=== PATIENT | male | born 1965 | race Caucasian/White ===

== ENCOUNTER 2017-04-17 13:05 | Emergency (ER) | payer SELFPAY ==
[2017-04-17 13:06] VITALS: BP 211/136; PULSE 88; RESP 20; TEMP 37.3; O2SAT 98; BMI 35.2
--- NOTE | 2017-04-17 14:40 | PC.NURSE ---
PT B/P IS 211/136 , PT STATES THAT IS NORMAL FOR HIM HE HAS NOT BEEN TAKING HIS MEDS. PT TAKES LISINOPRIL/HCTZ
--- NOTE | 2017-04-17 15:13 | XR_ITS ---
XR ankle LT 2V, XR foot LT 2V Ordering Physician: Mirta Danielle MD Patient Age: 51 years: Male HISTORY: ITS.REASON: REDNESS AND SWELLING NO INJURY left ankle TECHNIQUE: Left ankle 2 views Left foot 2 views COMPARISON :February 2016 right ankle 3 views = Left ANKLE 2 VIEWS No acute fracture nor dislocation. On this AP and lateral view The ankle mortise well-maintained. Dome of talus intact. Mild hypertrophic ridging lipping at the anterior margin of the distal talus at the ankle joint. Question. Minor soft tissue swelling laterally overlying the lateral malleolu is similar to previous right ankle study s. Left FOOT 2 VIEWS AP and lateral view of the left foot demonstrates mild diffuse soft tissue swelling at the foot most evident dorsal. No radiopaque foreign body evident. The bones well mineralized with no fracture nor dislocation. Mild degenerative changes first MTP joint noted. A generous plantar calcaneal spur measures 11 mm length. Scant spurring at insertion of Achilles tendon. . No evidence of periosteal reaction or nor osteomyelitis radiographically IMPRESSIONs: LEFT FOOT: Osseous structures left foot intact. No acute osseous findings. Plantar calcaneal spur. Early degenerative changes first MTP joint. Suggestion diffuse Soft tissue swelling left foot. No radiopaque foreign body LEFT ANKLE. Joint well-maintained. No acute findings. . Scant degenerative changes
[2017-04-17 15:29] LABS: Uric Acid 7.5 mg/dL (2.6-7.2)
[2017-04-17 15:45] LABS: Basophils % 0.4 % (0.1-2.0); Eosinophils # 0.1 K/mm3 (0.0-0.4); Hematocrit 43.2 % (42.0-52.0); Hemoglobin 15.1 g/dL (14.1-18.0); Lymphocytes # 1.9 K/mm3 (0.7-4.5); Lymphocytes % 18.1 K/mm3 (10-50); Mean Corpuscular Hemoglobin 29.4 pg (27.0-31.2); Mean Corpuscular Volume 83.9 fl (80-94); Mean Platelet Volume 8.2 fl (7.4-10.4); Monocytes # 0.9 K/mm3 (0.1-1.0); Monocytes % 8.1 % (1.7-9.3); Neutrophils # 7.7 K/mm3 (1.8-7.8); Neutrophils % 72.5 % (37.0-80.0); Platelet Count 316 K/mm3 (142-424); Red Blood Count 5.15 M/mm3 (4.60-6.20); Red Cell Distribution Width 12.5 % (11.5-17.5); White Blood Count 10.6 K/mm3 (4.8-10.8)
[2017-04-17 15:54] LABS: Alanine Aminotransferase 17 U/L (12-78); Albumin Level 3.5 gm/dL (3.4-5.0); Albumin/Globulin Ratio 0.8 (1.1-1.8); Alkaline Phosphatase 83 U/L (46-116); Anion Gap 11.3 mEq/L (5-15); Aspartate Amino Transferase 22 U/L (15-37); Bilirubin,Total 1.1 mg/dL (0.2-1.0); Blood Urea Nitrogen 18 mg/dL (7-18); C-Reactive Protein 10.8 mg/L (0.0-0.9); Calcium 9.5 mg/dL (8.5-10.1); Carbon Dioxide 30 mmol/L (21.0-32.0); Chloride 96 mmol/L (98-107); Creatinine Clearance Estimated 95 mL/min (0-300); Estimated Glomerular Filt Rate 58 ml/min (>60); GFR (African American) 70 ML/MIN (>60); Globulin 4.5 gm/dl (1.3-3.2); Glucose 138 mg/dL (74-106); Potassium 3.3 mmoL/L (3.5-5.1); Sodium 134 mmol/L (136-145)
--- NOTE | 2017-04-17 18:30 | HMH.EDGENADL ---
ED Disposition Clinical Impression: Gout attack Qualifiers: Encounter type: initial encounter Laterality: left Disposition: Home, Self-Care Condition on Discharge: Good Instructions: DI for Gout Additional Instructions: colchicine, allopurinol, Naproxen, Medrol, see Dr. 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 The time I documented below is in addition to time spent performing reported procedures but includes the following listed in this critical care notation. Medical Decision Making - Medical Records Medical records reviewed: Yes: I reviewed the patient's medical records. Vital Signs: 04/17/17 13:06 Temperature 99.1 F Temperature Source Oral Pulse Rate [Right Radial] 88 Respiratory Rate 20 Blood Pressure [Right Arm] 211/136 Blood Pressure Mean [Right Arm] 161 Blood Pressure Source [Right Arm] Automatic Cuff Blood Pressure Position [Right Arm] Sitting 02 Sat by Pulse Oximetry 98 Oxygen Delivery Method Room Air - Lab Data Lab results reviewed: Yes: I reviewed the patient's lab results. Lab Results 04/17/17 14:51: Uric Acid 7.5 H 04/17/17 14:57: WBC 10.6, RBC 5.15, Hgb 15.1, Hct 43.2, MCV 83.9, MCH 29.4, MCHC 35.0, RDW 12.5, Plt Count 316, MPV 8.2, Neut % (Auto) 72.5, Lymph % (Auto) 18.1, [place] % (Auto) 8.1, Eos % (Auto) 1.0, Baso % (Auto) 0.4, Neut # (Auto) 7.7, Lymph # (Auto) 1.9, [place] # (Auto) 0.9, Eos # (Auto) 0.1, Baso # (Auto) 0.0 01/20/18 14:57: Sodium 134 L, Potassium 3.3 L, Chloride 96 L, Carbon Dioxide 30, Anion Gap 11.3, BUN 18, Creatinine 1.30, Estimated Creat Clear 95, Estimated GFR 58 L, Est GFR ( Amer) 70, Glucose 138 H, Calcium 9.5, Total Bilirubin 1.1 H, AST 22, ALT 17, Alkaline Phosphatase 83, C-Reactive Protein 10.8 H, Total Protein 8.0, Albumin 3.5, Globulin 4.5 H, Albumin/Globulin Ratio 0.8 L Result diagrams: 04/17/17 14:57 04/17/17 14:57 Orders (Tests/Meds): ORDERS Category Date Time Status Blood Culture Stat Micro 04/17/17 15:33 Received - Radiology Data #1 Image(s): Ankle, Foot/Toes Image Reviewed: Yes I reviewed the patient's radiology results, Yes I have reviewed radiologist's interpretation Preliminary Findings: Normal/NAD No osteomyelitis per radiology review - [place] Inquiry Pt receiving controlled substance: No General Adult HPI - General Chief complaint: PAIN Stated complaint: left foot gout Mode of Arrival: Wheelchair Limitations: Physical Limitations Description of Symptoms (Recalled from ER Triage Doc. by RN): L FOOT AND ANKLE - History of Present Illness HPI narrative: Swelling to left ankle times several days. History of gout. No fevers or vomiting. Patient has been on allopurinol in the past, successfully. He says probenecid indomethacin have not worked. Consistency: constant Relieving factors: none Exacerbating factors: none Associated symptoms: denies other symptoms - Related Data Previous Rx's Medication Instructions Recorded Allopurinol [Allopurinol 100mg 200 mg PO BID #20 tab 04/17/17 tablet] Colchicine [Mitigare] 0.6 mg PO BID #20 cap 04/17/17 Naproxen [EC-Naprosyn] 500 mg PO BID PRN #20 tablet. 04/17/17 methylPREDNISolone [Medrol] 4 mg PO DAILY #1 tab.ds.pk 04/17/17 Allergies Allergy/AdvReac Type Severity Reaction Status Date / Time No Known Allergies Allergy Verified 04/17/17 14:39 [facility] History Medical History: Denies:: Cancer, Diabetes Mellitus
--- NOTE | 2017-04-17 18:35 | ED_ITS ---
ED Disposition Clinical Impression: Gout attack Qualifiers: Encounter type: initial encounter Laterality: left Disposition: Home, Self-Care Condition on Discharge: Good Instructions: DI for Gout Additional Instructions: colchicine, allopurinol, Naproxen, Medrol, see Dr. 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 The time I documented below is in addition to time spent performing reported procedures but includes the following listed in this critical care notation. Medical Decision Making - Medical Records Medical records reviewed: Yes: I reviewed the patient's medical records. Vital Signs: 04/17/17 13:06 Temperature 99.1 F Temperature Source Oral Pulse Rate [Right Radial] 88 Respiratory Rate 20 Blood Pressure [Right Arm] 211/136 Blood Pressure Mean [Right Arm] 161 Blood Pressure Source [Right Arm] Automatic Cuff Blood Pressure Position [Right Arm] Sitting 02 Sat by Pulse Oximetry 98 Oxygen Delivery Method Room Air - Lab Data Lab results reviewed: Yes: I reviewed the patient's lab results. Lab Results 04/17/17 14:51: Uric Acid 7.5 H 04/17/17 14:57: WBC 10.6, RBC 5.15, Hgb 15.1, Hct 43.2, MCV 83.9, MCH 29.4, MCHC 35.0, RDW 12.5, Plt Count 316, MPV 8.2, Neut % (Auto) 72.5, Lymph % (Auto) 18.1, [place] % (Auto) 8.1, Eos % (Auto) 1.0, Baso % (Auto) 0.4, Neut # (Auto) 7.7 , Lymph # (Auto) 1.9, [place] # (Auto) 0.9, Eos # (Auto) 0.1, Baso # (Auto) 0.0 01/20/18 14:57: Sodium 134 L, Potassium 3.3 L, Chloride 96 L, Carbon Dioxide 30 , Anion Gap 11.3, BUN 18, Creatinine 1.30, Estimated Creat Clear 95, Estimated GFR 58 L, Est GFR ( Amer) 70, Glucose 138 H, Calcium 9.5, Total Bilirubin 1.1 H, AST 22, ALT 17, Alkaline Phosphatase 83, C-Reactive Protein 10.8 H, Total Protein 8.0, Albumin 3.5, Globulin 4.5 H, Albumin/Globulin Ratio 0.8 L Result diagrams: 04/17/17 14:57 04/17/17 14:57 Orders (Tests/Meds): ORDERS Category Date Time Status Blood Culture Stat Micro 04/17/17 15:33 Received - Radiology Data #1 Image(s): Ankle, Foot/Toes Image Reviewed: Yes I reviewed the patient's radiology results, Yes I have reviewed radiologist's interpretation Preliminary Findings: Normal/NAD No osteomyelitis per radiology review - [place] Inquiry Pt receiving controlled substance: No General Adult HPI - General Chief complaint: PAIN Stated complaint: left foot gout Mode of Arrival: Wheelchair Limitations: Physical Limitations Description of Symptoms (Recalled from ER Triage Doc. by RN): L FOOT AND ANKLE - History of Present Illness HPI narrative: Swelling to left ankle times several days. History of gout. No fevers or vomiting. Patient has been on allopurinol in the past, successfully. He says probenecid indomethacin have not worked. Consistency: constant Relieving factors: none Exacerbating factors: none Assoc
[2017-04-17 18:57] VITALS: BP 220/141; PULSE 92; RESP 20; O2SAT 98
== END 2017-04-17 18:57 | disposition home or self-care (01) ==
PROVIDERS: Emergency Provider Emergency Medicine; Family Provider Internal Medicine
DX: M10.9 Gout, unspecified (principal); F17.210 Nicotine dependence, cigarettes, uncomplicated
CPT/HCPCS: 36415; 73600; 73620; 80053; 84550; 85025; 86140; 87040; 99282

== ENCOUNTER 2017-05-14 08:34 | Emergency (ER) | payer SELFPAY ==
[2017-05-14 08:39] VITALS: BP 234/130; PULSE 78; RESP 20; TEMP 37.2; O2SAT 100; BMI 72.5
--- NOTE | 2017-05-14 08:52 | HMH.EDEXTP ---
ED Disposition Clinical Impression: Tenosynovitis, Sprain and strain of wrist, Accelerated hypertension, Rheumatoid arthritis flare Disposition: Xfer Critical Access Hosp Condition on Discharge: Fair Instructions: Sprain, DI for Wrist Strain Additional Instructions: TAke medicine as directed and followup with Dr. Steele or Dr. Alaniz in the next coupleof days or return to the ED as needed. Use sling and splint and apply ice pack 20minutes out of each hour while awake Pt requests transfer to [facility] to Dr. Camara...we called him...and he referred us to Dr. Portillo, the Hospitalist at [facility] and Dr. Portillo has accepted pt in transfer. He has received Clonidine 0.1 mg X 2, lisinopril 40 mg po and Nitroglycerin drip titrated now to20 mcg / min and BP still very high Prescriptions: Diclofenac Potassium [Diclofenac 50mg Tab] 50 mg PO BID 30 Days #60 tab Lisinopril/Hydrochlorothiazide [Lisinopril-Hctz 20-25 mg Tab] 1 tab PO DAILY 30 Days #30 tab predniSONE [Deltasone 5mg tablet] 5 mg PO DAILY 12 Days #39 tab Referrals: Simon Stanton [Primary Care Provider] - Forms: Transfer Record - ED Time of Disposition: 12:06 - Critical Care Critical Care Time: No Attestation: On , the high probability of a clinically significant, sudden or life threatening deterioration of the following system(s) required my full and direct attention, intervention and personal management. The time I documented below is in addition to time spent performing reported procedures but includes the following listed in this critical care notation. Medical Decision Making - Medical Records Medical records reviewed: Yes: I reviewed the patient's medical records. Vital Signs: 05/14/17 08:39 05/14/17 10:05 Temperature 98.9 F Temperature Source Tympanic Pulse Rate [Left Radial] 78 98 H Respiratory Rate 20 20 Blood Pressure [Left Arm] 234/130 227/116 Blood Pressure Mean [Left Arm] 164 153 Blood Pressure Source [Left Arm] Manual Cuff/ Auscultation Manual Cuff/ Auscultation Blood Pressure Position [Left Arm] Sitting 02 Sat by Pulse Oximetry 100 100 Oxygen Delivery Method Room Air Room Air - Lab Data Lab results reviewed: Yes: I reviewed the patient's lab results. Lab Results 05/14/17 09:05: WBC 10.8, RBC 5.25, Hgb 15.2, Hct 44.4, MCV 84.6, MCH 28.9, MCHC 34.1, RDW 12.8, Plt Count 320, MPV 7.7, Neut % (Auto) 72.0, Lymph % (Auto) 20.6, [place] % (Auto) 5.3, Eos % (Auto) 1.6, Baso % (Auto) 0.5, Neut # (Auto) 7.7, Lymph # (Auto) 2.2, [place] # (Auto) 0.6, Eos # (Auto) 0.2, Baso # (Auto) 0.1 05/14/17 09:05: Sodium 138, Potassium 3.3 L, Chloride 101, Carbon Dioxide 29, Anion Gap 11.3, BUN 13, Creatinine 1.29, Estimated Creat Clear 62, Estimated GFR 58 L, Est GFR ( Amer) 70, Glucose 112 H, Calcium 9.2, Total Bilirubin 0.9, AST 11 L, ALT 22, Alkaline Phosphatase 82, Total Protein 7.9, Albumin 3.6, Globulin 4.3 H, Albumin/Globulin Ratio 0.8 L 05/14/17 09:05: Uric Acid 6.7 05/14/17 09:05: TSH 1.22, Free T4 Index 3.0 L, Thyroxine (T4) 8.7, T3 Uptake 35 Result diagrams: 05/14/17 09:05 05/14/17 09:05 Orders (Tests/Meds): ED MEDICATIONS Generic Name Dose Route Start Last Admin Trade Name Freq PRN Reason Stop Dose Admin Nitroglycerin/Dextrose 250 mls @ 1.5 mls/hr 05/14/17 11:15 05/14/17 11:17 Nitroglycerin 50mg/250ml D5w IV 06/13/17 11:14 10 mcg/min .Q24H ALBERT 3 mls/hr Protocol Administration 5 MCG/MIN Lisinopril 40 mg 05/14/17 11:15 05/14/17 11:18 Zestril 20mg Tab PO 06/13/17 11:14 40 mg DAILY ALBERT Administration Discontinued Medications Generic Name Dose Route Start Last Admin Trade Name Freq PRN Reason Stop Dose Admin Clonidine HCl 0.1 mg 05/14/17 09:36 05/14/17 09:40 Clonidine 0.1mg Tablet PO 05/14/17 09:37 0.1 mg ONCE ONE Administration Clonidine HCl 0.1 mg 05/14/17 10:27 05/14/17 10:28 Clonidine 0.1mg Tablet PO 05/14/17 10:28 0.1 mg ONCE ONE Administration Morp
--- NOTE | 2017-05-14 08:53 | XR_ITS ---
XR elbow RT 2V HISTORY: ITS.REASON: pain ORDERING PHYSICIAN: Gabe Irving MD PATIENT AGE: 51 years COMPARISON: None FINDINGS: Only 2 images were obtained. Patient refused to be positioned for the oblique view. On the AP view there is a subtle lucency along the radial head suspicious for nondisplaced fracture. If the patient cannot be properly positioned for radiograph then, CT may be of further value to confirm this fracture or prominent trabecular line or artifact. IMPRESSION: Limited exam with possible nondisplaced fracture of the radial head. Consider CT for confirmation
--- NOTE | 2017-05-14 08:53 | XR_ITS ---
XR wrist RT min 3V HISTORY: ITS.REASON: pain ORDERING PHYSICIAN: Gabe Irving MD PATIENT AGE: 51 years COMPARISON: None FINDINGS: No fracture or dislocation or significant arthritic change evident. There is an oval lucency involving the central aspect of the scaphoid may be due to a small cyst. Otherwise negative. IMPRESSION: No acute finding. Possible cystic lesion of the scaphoid
--- NOTE | 2017-05-14 08:56 | ED_ITS ---
ED Disposition Clinical Impression: Tenosynovitis, Sprain and strain of wrist, Accelerated hypertension, Rheumatoid arthritis flare Disposition: Xfer Critical Access Hosp Condition on Discharge: Fair Instructions: Sprain, DI for Wrist Strain Additional Instructions: TAke medicine as directed and followup with Dr. Steele or Dr. Alaniz in the next coupleof days or return to the ED as needed. Use sling and splint and apply ice pack 20minutes out of each hour while awake Pt requests transfer to [facility] to Dr. Camara...we called him...and he referred us to Dr. Portillo, the Hospitalist at [facility] and Dr. Portillo has accepted pt in transfer. He has received Clonidine 0.1 mg X 2, lisinopril 40 mg po and Nitroglycerin drip titrated now to20 mcg / min and BP still very high Prescriptions: Diclofenac Potassium [Diclofenac 50mg Tab] 50 mg PO BID 30 Days #60 tab Lisinopril/Hydrochlorothiazide [Lisinopril-Hctz 20-25 mg Tab] 1 tab PO DAILY 30 Days #30 tab predniSONE [Deltasone 5mg tablet] 5 mg PO DAILY 12 Days #39 tab Referrals: Simon Stanton [Primary Care Provider] - Forms: Transfer Record - ED Time of Disposition: 12:06 - Critical Care Critical Care Time: No Attestation: On , the high probability of a clinically significant, sudden or life threatening deterioration of the following system(s) required my full and direct attention, intervention and personal management. The time I documented below is in addition to time spent performing reported procedures but includes the following listed in this critical care notation. Medical Decision Making - Medical Records Medical records reviewed: Yes: I reviewed the patient's medical records. Vital Signs: 05/14/17 08:39 05/14/17 10:05 Temperature 98.9 F Temperature Source Tympanic Pulse Rate [Left Radial] 78 98 H Respiratory Rate 20 20 Blood Pressure [Left Arm] 234/130 227/116 Blood Pressure Mean [Left Arm] 164 153 Blood Pressure Source [Left Arm] Manual Cuff/ Auscultation Manual Cuff/ Auscultation Blood Pressure Position [Left Arm] Sitting 02 Sat by Pulse Oximetry 100 100 Oxygen Delivery Method Room Air Room Air - Lab Data Lab results reviewed: Yes: I reviewed the patient's lab results. Lab Results 05/14/17 09:05: WBC 10.8, RBC 5.25, Hgb 15.2, Hct 44.4, MCV 84.6, MCH 28.9, MCHC 34.1, RDW 12.8, Plt Count 320, MPV 7.7, Neut % (Auto) 72.0, Lymph % (Auto) 20.6, [place] % (Auto) 5.3, Eos % (Auto) 1.6, Baso % (Auto) 0.5, Neut # (Auto) 7.7 , Lymph # (Auto) 2.2, [place] # (Auto) 0.6, Eos # (Auto) 0.2, Baso # (Auto) 0.1 05/14/17 09:05: Sodium 138, Potassium 3.3 L, Chloride 101, Carbon Dioxide 29, Anion Gap 11.3, BUN 13, Creatinine 1.29, Estimated Creat Clear 62, Estimated GFR 58 L, Est GFR ( Amer) 70, Glucose 112 H, Calcium 9.2, Total Bilirubin 0.9, AST 11 L, ALT 22, Alkaline Phosphatase 82, Total Protein 7.9, Albumin 3.6, Globulin 4.3 H, Albumin/Globulin Ratio 0.8 L 05/14/17 09:05: Uric Acid 6.7 05/14/17 09:05: TSH 1.22, Free T4 Index 3.0 L, Thyroxine (T4) 8.7, T3 Uptake 35 Result diagrams: 05/14/17 09:05 05/14/17 09:05 Orders (Tests/Meds): ED MEDICATIONS Generic Name Dose Route Start Last Admin Trade Name Cathleen PRN Reason Stop Dose Admin Nitroglycerin/Dextrose 250 mls @ 1.5 mls/hr 05/14/17 11:15 05/14/17 11:17 Nitroglycerin 50mg/250ml D5w IV 06/13/17 11:14 10 mcg/min .Q24H ALBERT 3 mls/hr Protocol Administration 5 MCG/MIN Lis
[2017-05-14 09:38] LABS: Hematocrit 44.4 % (42.0-52.0); Hemoglobin 15.2 g/dL (14.1-18.0); Red Blood Count 5.25 M/mm3 (4.60-6.20); White Blood Count 10.8 K/mm3 (4.8-10.8)
[2017-05-14 09:39] LABS: Eosinophils % 1.6 % (0.1-12.0); Mean Corpuscular HGB Conc 34.1 g/dL (31.8-35.4); Mean Corpuscular Hemoglobin 28.9 pg (27.0-31.2); Mean Corpuscular Volume 84.6 fl (80-94); Mean Platelet Volume 7.7 fl (7.4-10.4); Monocytes % 5.3 % (1.7-9.3); Platelet Count 320 K/mm3 (142-424); Red Cell Distribution Width 12.8 % (11.5-17.5)
[2017-05-14 09:40] LABS: Basophils % 0.5 % (0.1-2.0); Eosinophils # 0.2 K/mm3 (0.0-0.4); Lymphocytes # 2.2 K/mm3 (0.7-4.5); Lymphocytes % 20.6 K/mm3 (10-50); Monocytes # 0.6 K/mm3 (0.1-1.0); Neutrophils # 7.7 K/mm3 (1.8-7.8)
[2017-05-14 09:41] LABS: Basophils # 0.1 K/mm3 (0-0.2)
[2017-05-14 09:54] LABS: Alanine Aminotransferase 22 U/L (12-78); Albumin Level 3.6 gm/dL (3.4-5.0); Albumin/Globulin Ratio 0.8 (1.1-1.8); Alkaline Phosphatase 82 U/L (46-116); Anion Gap 11.3 mEq/L (5-15); Aspartate Amino Transferase 11 U/L (15-37); Bilirubin,Total 0.9 mg/dL (0.2-1.0); Blood Urea Nitrogen 13 mg/dL (7-18); Calcium 9.2 mg/dL (8.5-10.1); Carbon Dioxide 29 mmol/L (21.0-32.0); Chloride 101 mmol/L (98-107); Creatinine Clearance Estimated 62 mL/min (0-300); Creatinine,Serum 1.29 mg/dL (0.70-1.30); Estimated Glomerular Filt Rate 58 ml/min (>60); GFR (African American) 70 ML/MIN (>60); Globulin 4.3 gm/dl (1.3-3.2); Glucose 112 mg/dL (74-106); Potassium 3.3 mmoL/L (3.5-5.1); Sodium 138 mmol/L (136-145); Total Protein,Serum 7.9 gm/dL (6.4-8.2)
[2017-05-14 09:57] LABS: Uric Acid 6.7 mg/dL (2.6-7.2)
[2017-05-14 10:05] VITALS: BP 227/116; PULSE 98; RESP 20; O2SAT 100
[2017-05-14 10:53] LABS: T4 (Thyroxine) 8.7 ug/dl (4.7-13.3); Thyroid Stimulating Hormone 1.22 uIU/ml (0.358-3.740); Triiodothryronine (T3) Uptake 35 % (31-39)
--- NOTE | 2017-05-14 11:04 | PC.NURSE ---
SPEAKING TO DOCTOR HOLLAND AT [facility] AT THIS TIME REGARDING POSSIBLE ADMISSION. DOCTOR HOLLAND IS THE HOSPITALIST.
[2017-05-14 12:27] VITALS: BP 195/130; PULSE 73; RESP 18; TEMP 36.8; O2SAT 99
[2017-05-14 12:55] LABS: CKMB Relative Index 0.7 U/L (0-4.0); Creatine Kinase 98 U/L (39-308); Creatine Kinase MB 0.7 mg/ml (0.0-3.6); Troponin I < 0.02 ng/ml (0.00-0.06)
[2017-05-14 13:07] VITALS: BP 211/116; PULSE 71; RESP 20; TEMP 36.6; O2SAT 98
== END 2017-05-14 13:07 | disposition critical access hospital (66) ==
PROVIDERS: Emergency Provider General Practice; Family Provider Internal Medicine; PCP Internal Medicine
DX: M65.831 Other synovitis and tenosynovitis, right forearm (principal); M06.9 Rheumatoid arthritis, unspecified; M10.9 Gout, unspecified; I10 Essential (primary) hypertension
CPT/HCPCS: 73070; 73110; 80053; 82550; 82553; 84436; 84443; 84479; 84484; 84550; 85025; 93005; 93041; 96365; 96366; 96374; 96375; 99283; J2405

== ENCOUNTER 2021-05-29 09:11 | Emergency (ER) | payer MEDICAID, SELFPAY ==
[2021-05-29 09:12] VITALS: BP 153/80; PULSE 67; RESP 18; TEMP 36.8; O2SAT 100; BMI 31.3
--- NOTE | 2021-05-29 09:24 | CT_ITS ---
FINAL REPORT TECHNIQUE: Axial imaging of the lumbar spine was obtained without contrast. Sagittal and coronal reformatted images were also obtained and reviewed. This study was performed with techniques to keep radiation doses as low as reasonably achievable (ALARA). Individualized dose reduction techniques using automated exposure control or adjustment of mA and/or kV according to the patient''s size were employed. CLINICAL HISTORY: low back pain, radiating to upper back FINDINGS: There is no fracture. The vertebral alignment is normal. Degenerative changes are seen at multiple levels with multilevel osteophytes. L1-2: No significant canal stenosis or neural foraminal narrowing is seen. L2-3: An annular bulge is present with vertebral osteophytes and bilateral facet arthropathy. There is mild bilateral neural foraminal narrowing. Mild central canal stenosis is seen with an AP diameter of the thecal sac of 9 mm. L3-4: An annular bulge is present with vertebral osteophytes. Moderate right and mild left neural foraminal narrowing is seen. There is mild central canal stenosis with an AP diameter of the thecal sac of 9 mm. L4-L5: An annular bulge is present with vertebral osteophytes and bilateral facet arthropathy. Moderate bilateral neural foraminal narrowing is seen. L5-S1: An annular bulge is present with vertebral osteophytes and bilateral facet arthropathy. There is severe bilateral neural foraminal narrowing. IMPRESSION: No fracture or acute bony abnormality. Multilevel degenerative disc disease and spondylosis with bilateral neural foraminal narrowing, greatest at L5-S1. Mild central canal stenosis at L2-3 and L3-4. Authenticated by Raghu Kimball III, MD on 05/29/2021 10:00:16 AM [facility]
--- NOTE | 2021-05-29 09:35 | HMH.EDBACK ---
ED Disposition Clinical Impression: Strain of lumbar region Qualifiers: Encounter type: initial encounter Qualified Code(s): S39.012A - Strain of muscle, fascia and tendon of lower back, initial encounter Disposition: Home, Self-Care Condition on Discharge: Good Instructions: DI for Back Pain With Sciatica Prescriptions: Ibuprofen [Ibuprofen 800mg Tablet] 800 mg PO TIDP PRN #20 tab PRN Reason: Moderate Pain Transmission Status[id number] methocarbamoL [Methocarbamol 500mg Tablet] 1,000 mg PO TID 10 Days #60 tab Transmission Status: Pending to [id number] Referrals: Simon Stanton [Primary Care Provider] - - Critical Care Critical Care Time: No Attestation: On 05/29/21, the high probability of a clinically significant, sudden or life threatening deterioration of the following system(s) required my full and direct attention, intervention and personal management. The time I documented below is in addition to time spent performing reported procedures but includes the following listed in this critical care notation. Medical Decision Making - Medical Records Medical records reviewed: Yes: I reviewed the patient's medical records. - [place] Inquiry Pt receiving controlled substance: No Vital Signs: 05/29/21 09:12 05/29/21 10:00 Temperature 98.2 F Temperature Source Oral Pulse Rate 65 Pulse Rate [Left Radial] 67 Respiratory Rate 18 18 Blood Pressure 143/74 H Blood Pressure [Right Arm] 153/80 H Blood Pressure Mean 92 Blood Pressure Mean [Right Arm] 104 Blood Pressure Source [Right Arm] Automatic Cuff Blood Pressure Position [Right Arm] Sitting 02 Sat by Pulse Oximetry 100 99 Oxygen Delivery Method Nasal Cannula Orders (Tests/Meds): ED MEDICATIONS Discontinued Medications Generic Name Dose Route Start Last Admin Trade Name Freq PRN Reason Stop Dose Admin Hydrocodone Bitart/Acetaminophen 2 tab 05/29/21 09:24 05/29/21 10:04 Hydrocodone/Apap 5/325 Mg Tablet PO 05/29/21 09:25 2 tab ONCE ONE Administration Methocarbamol 1,000 mg 05/29/21 09:24 05/29/21 10:04 Methocarbamol 500mg Tablet PO 05/29/21 09:25 1,000 mg ONCE STA Administration - CT Data CT Scan: L-Spine Time Received: 10:[address] Reviewed: Yes: I have reviewed the patient's CT results, I have viewed the radiologist's interpretation Findings Narrative: IMPRESSION: No fracture or acute bony abnormality. Multilevel degenerative disc disease and spondylosis with bilateral neural foraminal narrowing, greatest at L5-S1. Mild central canal stenosis at L2-3 and L3-4. - Reevaluation(s) Time: 10:25 Reevaluation #1: On reevaluation, the patient is feeling better. Patient does have some chronic degenerative changes in the lumbar spine. There is no fracture deformity. Patient has evidence of spinal cord impingement. Patient will be discharged with muscle nodules analgesics. Needs to follow-up with PCP in 48 hours. Given strict return precautions. Verbalized understanding. Medical Decision Narrative: 55-year-old male presented to the emergency department with some lower back pain. Findings are consistent with lumbar strain. Patient has no neurologic deficit or evidence of spinal cord compression. Work-up initiated. Back Pain HPI - General Chief Complaint: Back Pain/Injury Stated Complaint: back pain Time Seen by Provider: 05/29/21 09:15 Mode of Arrival: Wheelchair Limitations: No Limitations Description of Symptoms (Recalled from ER Triage Doc. by RN): Pt c/o [id number] back pain since last night. Pt states that ambulation once getting out of bed this AM was difficult. No known injury - History of Present Illness HPI Narrative: Is a 55-year-old male presented with some lower back discomfort. Patient states that is located in his right lower side. Patient states as he was getting out of bed this morning he felt something pull in his back. Si
[2021-05-29 10:00] VITALS: BP 143/74; PULSE 65; RESP 18; O2SAT 99
[2021-05-29 10:38] VITALS: BP 140/74; PULSE 64; RESP 16; TEMP 36.7; O2SAT 99
== END 2021-05-29 10:39 | disposition home or self-care (01) ==
PROVIDERS: Emergency Provider Emergency Medicine; PCP Internal Medicine
DX: S39.012A Strain of muscle, fascia and tendon of lower back, initial encounter (principal); M47.817 Spondylosis without myelopathy or radiculopathy, lumbosacral region; F17.210 Nicotine dependence, cigarettes, uncomplicated; Z79.1 Long term (current) use of non-steroidal anti-inflammatories (NSAID); Z79.899 Other long term (current) drug therapy
CPT/HCPCS: 72131; 99284

== ENCOUNTER 2021-11-18 01:29 | Emergency (ER) | payer MEDICAID, SELFPAY ==
[2021-11-18 01:30] VITALS: BP 172/92; PULSE 98; RESP 16; TEMP 37; O2SAT 98; BMI 29.0
--- NOTE | 2021-11-18 02:03 | HMH.EDSKAF ---
ED Disposition Clinical Impression: Foreign body in ear Qualifiers: Encounter type: initial encounter Laterality: right Qualified Code(s): T16.1XXA - Foreign body in right ear, initial encounter Hypertension Qualifiers: Hypertension type: primary hypertension Qualified Code(s): I10 - Essential (primary) hypertension Disposition: Home, Self-Care Condition on Discharge: Good Instructions: DI for Removal of Foreign Body From Ear Additional Instructions: call pcp for follow up Referrals: Simon Stanton [Primary Care Provider] - - Critical Care Critical Care Time: No Attestation: On 11/18/21, the high probability of a clinically significant, sudden or life threatening deterioration of the following system(s) required my full and direct attention, intervention and personal management. The time I documented below is in addition to time spent performing reported procedures but includes the following listed in this critical care notation. Medical Decision Making - Medical Records Medical records reviewed: Yes: I reviewed the patient's medical records. - Chandler Inquiry Pt receiving controlled substance: No Vital Signs: 11/18/21 01:30 Temperature 98.6 F Temperature Source Oral Pulse Rate [Left] 98 H Respiratory Rate 16 Blood Pressure [Right Arm] 172/92 H Blood Pressure Mean [Right Arm] 118 Blood Pressure Source [Right Arm] Manual Cuff/ Auscultation 02 Sat by Pulse Oximetry 98 Oxygen Delivery Method Room Air Medical Decision Narrative: fb-bug rt ear removed w/o diff Skin/Abscess/FB HPI - General Chief complaint: Ear Stated complaint: Right ear pain Time Seen by Provider: 11/18/21 02:03 Mode of Arrival: Ambulatory Source of Information: Patient, Medical Record Limitations: No Limitations Description of Symptoms (Recalled from ER Triage Doc. by RN): pt stated he fell asleep 30 mins ago and woke up with a bug in his ear. pt has a mcintyre in his right ear - History of Present Illness HPI narrative: bug in rt ear tonight complaint: foreign body Onset (ago): hour(s) Tetanus up to date: unsure Location: head Severity: moderate Consistency: intermittent Treatments prior to arrival: none - Related Data Home Medications Medication Instructions Recorded Confirmed Diclofenac Potassium [Diclofenac 50 mg PO BID 11/18/21 11/18/21 50mg Tab] Isosorbide Mononitrate [Isosorbide 30 mg PO BID 11/18/21 11/18/21 Mononitrate ER] Tramadol HCl [Tramadol 50mg 1 - 2 tab PO BIDP PRN 11/18/21 11/18/21 Tab] carvediloL [Carvedilol 12.5mg Tab] 12.5 mg PO BID 11/18/21 11/18/21 cloNIDine HCL [cloNIDine 0.1mg 0.1 mg PO TID 11/18/21 11/18/21 Tablet] methocarbamoL [Methocarbamol 500mg 1,000 mg PO TID 11/18/21 11/18/21 Tablet] Previous Rx's Medication Instructions Recorded Ibuprofen [Ibuprofen 800mg 800 mg PO TIDP PRN #20 tab 05/29/21 Tablet] Allergies Allergy/AdvReac Type Severity Reaction Status Date / Time No Known Allergies Allergy Verified 04/17/17 14:39 [facility] History - Hepatitis A Screen Attestation statement:: This patient has been screened for Hepatitis A risk factors. I have reviewed the patient's past medical history: Yes Medical History: Denies:: Cancer, Diabetes Mellitus Type 1, Diabetes Mellitus Type 2, Internal Pacemaker, MRSA Laterality Cases: Bilateral: Tonsillectomy Other Surgeries: No: Pacemaker Amputation: No - Social History Smoking Status: Current every day smoker Tobacco Type: cigarettes # Packs/Day (cigarettes): 1 Alcohol Intake: never ROS Obtained: Yes All systems reviewed & no additional complaints - Constitutional Constitutional: Denies fever(s) - Eyes Eyes: Denies change in vision - ENT Ears, Nose, Mouth, and Throat: Reports as per HPI, Reports otalgia, Reports other (bug rt ear ) - Cardiovascular Cardiovascular: Denies chest pain - Respiratory Respiratory: Denies cough - Gastrointestinal Gastroi
[2021-11-18 02:11] VITALS: BP 174/90; PULSE 80; RESP 18; TEMP 36.5; O2SAT 98
== END 2021-11-18 02:16 | disposition home or self-care (01) ==
PROVIDERS: Emergency Provider Emergency Medicine; PCP Internal Medicine
DX: T16.1XXA Foreign body in right ear, initial encounter (principal); I10 Essential (primary) hypertension
CPT/HCPCS: 69200; 99283

== ENCOUNTER 2022-10-22 18:07 | Emergency (ER) | payer MEDICAID, SELFPAY ==
[2022-10-22 18:16] VITALS: BP 171/88; PULSE 57; O2SAT 96
[2022-10-22 18:18] VITALS: BP 171/88; PULSE 80; RESP 16; TEMP 36.7; O2SAT 96; BMI 29.7
--- NOTE | 2022-10-22 18:30 | HMH.EDGENADL ---
Discharge Plan Disposition Patient Disposition: Home, Self-Care Prescriptions Prescriptions: New dexamethasone 6 mg tablet 6 mg PO DAILY 4 Days Qty: 4 0RF Benadryl 2 % gel 1 applic topical BID Qty: 103 0RF No Action ibuprofen 800 MG tablet 800 mg PO TIDP PRN (Reason: Moderate Pain) Qty: 20 0RF clonidine HCl 0.1 MG tablet 0.1 mg PO TID carvedilol 12.5 MG tablet 12.5 mg PO BID isosorbide mononitrate 30 MG tablet extended release 24 hr 30 mg PO BID tramadol 50 MG tablet 1 - 2 tab PO BIDP PRN (Reason: Moderate Pain) methocarbamol 500 MG tablet 1,000 mg PO TID diclofenac potassium 50 MG tablet 50 mg PO BID Referrals Follow up/Referrals: Simon Stanton [Primary Care Provider] - See instructions Clinical Impressions Clinical Impression: Allergic dermatitis Instructions Patient Instructions: DI for Skin Abscess Discharge ED Provider: Dale Alvarez General Adult HPI General Chief complaint: Skin/Abscess/Foreign Body Stated complaint: rash Time Seen by Provider: 10/22/22 18:09 Mode of Arrival: Ambulatory Source of Information: Patient Limitations: No Limitations Description of Symptoms (Recalled from ER Triage Doc. by RN): 57 yo M presents to ED with c/o rash. symptoms began wednesday after pt finished clearing out a fence line. rash located on bilateral lower extremities, bilateral arms. pts reports OTC medication not working. History of Present Illness HPI narrative: This is a 57-year-old male with history of hypertension presenting with rash. Patient states he was cleaning out the fence line a few days prior to arrival, started developing a rash on his bilateral upper and lower extremities. States I am miserable, secondary to the itching and burning. Has not noticed anything that makes it better or worse. No systemic signs or symptoms. Related Data Home Medications Medication Instructions Recorded Confirmed carvedilol 12.5 mg tablet 12.5 mg PO BID High blood pressure 11/18/21 11/18/21 clonidine HCl 0.1 mg tablet 0.1 mg PO TID High blood pressure 11/18/21 11/18/21 diclofenac potassium 50 mg tablet 50 mg PO BID Pain 11/18/21 11/18/21 isosorbide mononitrate 30 mg 30 mg PO BID High blood pressure 11/18/21 11/18/21 tablet,extended release 24 hr methocarbamol 500 mg tablet 1,000 mg PO TID muscle pain 11/18/21 11/18/21 tramadol 50 mg tablet 1 - 2 tab PO BIDP PRN Moderate Pain 11/18/21 11/18/21 Previous Rx's Medication Instructions Recorded ibuprofen 800 mg tablet 800 mg PO TIDP PRN Moderate Pain 05/29/21 #20 tabs dexamethasone 6 mg tablet 6 mg PO DAILY 4 days #4 tabs 10/22/22 diphenhydramine HCl 2 % topical 1 applic topical BID #103 mL 10/22/22 gel (Benadryl) Allergies Allergy/AdvReac Type Severity Reaction Status Date / Time No Known Allergies Allergy Verified 04/17/17 14:39 [facility] Disclaimer: The information contained in this section may have been updated after the patient was seen, as this information can be updated by other users. Social History Smoking Status: Current every day smoker tobacco type: cigarettes packs per day: 1 second hand exposure: No alcohol intake: never current occupational status: unemployed Travel in the last 8 weeks: None caffeine: Yes ROS Obtained: Yes All systems reviewed & no additional complaints except as documented Physical Exam General General appearance: alert, in no apparent distress and other ( ) Head Head exam: atraumatic and normocephalic Eye Eye exam: Present normal appearance, PERRL and EOMI ENT ENT exam: Present mucous membranes moist Neck Neck exam: Present normal inspection, full ROM and trachea midline Respiratory Respiratory exam: Absent respiratory distress, wheezes, stridor, accessory muscle use or prolonged expiratory phase Cardiovascular Cardiovascular exam: Present regular rate and normal rhythm Abdominal Exam Abdominal exam: Present soft; Abs
[2022-10-22 18:47] VITALS: BP 171/88; PULSE 60; RESP 16; TEMP 36.7
== END 2022-10-22 18:48 | disposition home or self-care (01) ==
PROVIDERS: Emergency Provider Emergency Medicine; PCP Internal Medicine
DX: L23.9 Allergic contact dermatitis, unspecified cause (principal); I10 Essential (primary) hypertension; F17.210 Nicotine dependence, cigarettes, uncomplicated
CPT/HCPCS: 99283

== ENCOUNTER 2023-09-10 16:45 | Emergency (ER) | payer MEDICAID, SELFPAY ==
--- OUTSIDE RECORDS SUMMARY | 2023-09-10 16:49 | XMS_ITS | Clinical Summary ---
Author Name Unknown Address [address] [place] [address] Phone Organization [facility] Address [address] [place] [address] Phone Care Team Providers Care Stone Derrickman And Rigger Name Role Phone Ede Andrade MD [ ] Conditions or Problems No information available. Medications No information available. Medications Administered No information available. Allergies, Adverse Reactions, Alerts No information available. Results No information available. Plan of Care No information available. Procedures No information available. Vital Signs No information available. Immunizations No information available. Advance Directives No information available.
--- NOTE | 2023-09-10 16:57 | EXP.UTC ---
Discharge Plan Disposition Patient Disposition: Home, Self-Care Condition: Good Prescriptions Prescriptions: New methylprednisolone [Medrol (Freddie)] 4 mg tablets,dose pack 4 mg PO DIRECTED Qty: 21 0RF triamcinolone acetonide 0.1 % lotion 1 applic topical BID Qty: 60 0RF No Action ibuprofen 800 MG tablet 800 mg PO TIDP PRN (Reason: Moderate Pain) Qty: 20 0RF dexamethasone 6 mg tablet 6 mg PO DAILY 4 Days Qty: 4 0RF Benadryl 2 % gel 1 applic topical BID Qty: 103 0RF clonidine HCl 0.1 MG tablet 0.1 mg PO TID carvedilol 12.5 MG tablet 12.5 mg PO BID isosorbide mononitrate 30 MG tablet extended release 24 hr 30 mg PO BID tramadol 50 MG tablet 1 - 2 tab PO BIDP PRN (Reason: Moderate Pain) methocarbamol 500 MG tablet 1,000 mg PO TID diclofenac potassium 50 MG tablet 50 mg PO BID Referrals Follow up/Referrals: Simon Stanton [Primary Care Provider] - See instructions Clinical Impressions Clinical Impression: Contact dermatitis Instructions Patient Instructions: DI for Contact Dermatitis Discharge ED Provider: Giselle Bob [facility] General Stated complaint: rash Time Seen by Provider: 09/10/23 16:57 History of Present Illness Provider Complaint: Rash on both arms, itching and oozing, after cleaning out fence row the past few days. Onset (ago): day(s) (2) Location: left, right and upper extremity Relieving factors: none Exacerbating factors: none Associated symptoms: denies other symptoms Treatments prior to arrival: none Related Data Home Medications Medication Instructions Recorded Confirmed carvedilol 12.5 mg tablet 12.5 mg PO BID High blood pressure 11/18/21 11/18/21 clonidine HCl 0.1 mg tablet 0.1 mg PO TID High blood pressure 11/18/21 11/18/21 diclofenac potassium 50 mg tablet 50 mg PO BID Pain 11/18/21 11/18/21 isosorbide mononitrate 30 mg 30 mg PO BID High blood pressure 11/18/21 11/18/21 tablet,extended release 24 hr methocarbamol 500 mg tablet 1,000 mg PO TID muscle pain 11/18/21 11/18/21 tramadol 50 mg tablet 1 - 2 tab PO BIDP PRN Moderate Pain 11/18/21 11/18/21 Previous Rx's Medication Instructions Recorded ibuprofen 800 mg tablet 800 mg PO TIDP PRN Moderate Pain 05/29/21 #20 tabs dexamethasone 6 mg tablet 6 mg PO DAILY 4 days #4 tabs 10/22/22 diphenhydramine HCl 2 % topical 1 applic topical BID #103 mL 10/22/22 gel (Benadryl) methylprednisolone 4 mg tablets in 4 mg PO DIRECTED #21 tabs 09/10/23 a dose pack (Medrol (Freddie)) triamcinolone acetonide 0.1 % 1 applic topical BID #60 mL 09/10/23 lotion Allergies Allergy/AdvReac Type Severity Reaction Status Date / Time No Known Allergies Allergy Verified 09/10/23 17:08 [facility] Disclaimer: The information contained in this section may have been updated after the patient was seen, as this information can be updated by other users. Social History Smoking Status: Current every day smoker tobacco type: cigarettes packs per day: 1 second hand exposure: No alcohol intake: never current occupational status: unemployed Travel in the last 8 weeks: None caffeine: Yes ROS Obtained: Yes All systems reviewed & no additional complaints except as documented Integumentary/Breasts Skin/Breast: Reports pruritus and Reports rash Physical Exam General General appearance: alert, in no apparent distress and other ( ) Head Head exam: atraumatic and normocephalic Eye Eye exam: Present normal appearance, PERRL and EOMI ENT ENT exam: Present mucous membranes moist Neck Neck exam: Present normal inspection, full ROM and trachea midline Respiratory Respiratory exam: Absent respiratory distress, wheezes, stridor, accessory muscle use or prolonged expiratory phase Cardiovascular Cardiovascular exam: Present regular rate and normal rhythm Abdominal Exam Abdominal exam: Present soft; Absent distention, tenderness, guarding, rebound, rigidity or normal bowel sounds Extremities Exam Extremities exam: Absent edema Neurological Exam Neurological exam: Present alert, oriented X3, CN II-XII intact and normal gait; Absent motor sensory deficit Skin Skin exam: Present warm, dry and rash (Erythematous, blanching, coalescing rash on bilateral upper and lower extremities concerning for allergic dermatitis); Absent diaphoresis or erythema Medical Decision Making Chandler Inquiry Pt receiving controlled substance: No
[2023-09-10 17:00] VITALS: BP 199/92; PULSE 65; RESP 18; TEMP 36.6; O2SAT 96; BMI 30.5
[2023-09-10] MEDS: METHYLPREDNISOLONE SOD SUCC 125MG VIAL 125 MG IM (17:19)
[2023-09-10 17:36] VITALS: BP 199/92; PULSE 65; RESP 18; TEMP 36.6; O2SAT 96
== END 2023-09-10 17:36 | disposition home or self-care (01) ==
PROVIDERS: Emergency Provider Physician Assistant; PCP Internal Medicine
DX: L25.9 Unspecified contact dermatitis, unspecified cause (principal); F17.210 Nicotine dependence, cigarettes, uncomplicated
CPT/HCPCS: 96372; 99204; 99212; G0463; J2930

== ENCOUNTER 2024-01-17 10:22 | Emergency (ER) | payer MEDICAID, SELFPAY ==
[2024-01-17 10:35] VITALS: BP 180/75; PULSE 63; RESP 20; TEMP 36.7; O2SAT 99; BMI 30.4
--- NOTE | 2024-01-17 11:33 | ED_ITS ---
Discharge Plan Disposition Patient Disposition: Home, Self-Care Condition: Good Prescriptions Prescriptions: No Action atorvastatin 80 mg tablet 80 mg PO HS Patient Comments: TAKE 1 TABLET BY MOUTH EVERY DAY carvedilol 12.5 mg tablet 12.5 mg PO BID Patient Comments: TAKE 1 TABLET BY MOUTH TWICE A DAY meloxicam 15 mg tablet 15 mg PO DAILY Patient Comments: TAKE 1 TABLET BY MOUTH EVERY DAY isosorbide mononitrate 30 mg tablet extended release 24 hr 30 mg PO DAILY Patient Comments: TAKE 1 TABLET BY MOUTH EVERY DAY omeprazole 20 mg capsule,delayed release(DR/EC) 20 mg PO DAILY Patient Comments: TAKE 1 CAPSULE BY MOUTH EVERY DAY hydralazine 50 mg tablet 50 mg PO TID Patient Comments: TAKE 1 TABLET BY MOUTH 3 TIMES A DAY spironolactone 50 mg tablet 50 mg PO DAILY Patient Comments: TAKE 1 TABLET BY MOUTH EVERY DAY Referrals Follow up/Referrals: Simon Stanton [Primary Care Provider] - See instructions Peter Casper [Referring] - 01/17/24 2:00 pm Activity Restrictions/Add. Instructions Additional Instructions/Restrictions: You have an appointment today with Salvador at [address] [place] [address] [address] [address] Phone number [phone] at 2:00Pm [facility] per Salvador Follow up with your Family Doctor Clinical Impressions Clinical Impression: Foreign body finger Print Language Print Language: Trinidadian Discharge ED Provider[place] [facility] [place] General Stated complaint: splinter inside R ring finger-2 days Mode of Arrival: Ambulatory Source of Information: Patient Limitations: No Limitations Time Seen by Provider: 01/17/24 10:40 Description of Symptoms (Recalled from Triage Doc. by RN): PATIENT C/O SPLINTER TO LEFT RING FINGER X 2 DAYS HEENT Symptoms (Recalled from RN notes): No Resp Symptoms (Recalled from RN notes): No Skin Symptoms (Recalled from RN notes): Yes MS Symptoms (Recalled from RN notes): No Functional Status (Recalled from RN notes): WNL History of Present Illness Provider Complaint: Patient states that he was moving some wood and a splinter went into the base left ring finger States he tried to cut it out but couldnt States he got a small piece out but there is another piece deeper in there Related Data Home Medications ?Medication ?Instructions ?Recorded ?Confirmed atorvastatin 80 mg tablet 80 mg PO HS 01/17/24 01/17/24 carvedilol 12.5 mg tablet 12.5 mg PO BID 01/17/24 01/17/24 hydralazine 50 mg tablet 50 mg PO TID 01/17/24 01/17/24 isosorbide mononitrate 30 mg 30 mg PO DAILY 01/17/24 01/17/24 tablet,extended release 24 hr meloxicam 15 mg tablet 15 mg PO DAILY 01/17/24 01/17/24 omeprazole 20 mg capsule,delayed 20 mg PO DAILY 01/17/24 01/17/24 release spironolactone 50 mg tablet 50 mg PO DAILY 01/17/24 01/17/24 Allergies Allergy/AdvReac Type Severity Reaction Status Date / Time No Known Allergies Allergy Verified 09/10/23 17:08 Worker's Comp Is this a Worker's Comp case?: No [facility] Disclaimer: The information contained in this section may have been updated after the patient was seen, as this information can be updated by other users. Social History Smoking Status: Current every day smoker tobacco type: cigarettes packs per day: 1 second hand exposure: No alcohol intake: never current occupational status: unemployed Travel in the last 8 weeks: None caffeine: Yes ROS Obtained: Yes All systems reviewed & no additional complaints except as documented and Yes Systems reviewed as appropriate & no additional complaints except as documented Constitutional Constitutional: Reports system reviewed and no additional complaints, except as documented and Reports as per HPI ENT Ears, Nose, Mouth, and Throat: Reports system reviewed and no additional complaints, except as documented and Reports as per HPI Cardiovascular Cardiovascular: Reports system reviewed and no additional complaints, except as documented and Reports as per HPI Respiratory Respiratory: Reports system reviewed and no additional complaints, except as documented and Reports as per HPI Gastrointestinal Gastrointestingal: Reports system reviewed and no additional complaints, except as documented and as per HPI Integumentary/Breasts Skin/Breast: Reports system reviewed and no additional complaints, except as documented, Reports as per HPI and Reports other (splinter in left ring finger) Physical Exam General General appearance: alert and in no apparent distress ENT ENT exam: Present mucous membranes moist Respiratory Respiratory exam: Present normal lung sounds bilaterally; Absent respiratory distress or wheezes Cardiovascular Cardiovascular exam: Present regular rate, normal rhythm and normal heart sounds Abdominal Exam Abdominal exam: Present soft and normal bowel sounds; Absent distention or tenderness Expanded Upper Extremity Exam Left: Hand L/R front image: 2 1. other (splinter deep into finger) Neurological Exam Neurological exam: Present alert, oriented X3 and normal gait Medical Decision Making Medical Records Screening: Per USPSTF and CDC recommendations, given the prevalence of disease in our region, it is our hospital?s policy to screen for HIV and viral Hepatitis for all patients aged 18 and over and those with ongoing risk factors. Chandler Inquiry Pt receiving controlled substance: No Chandler was queried for this patient: No Vital Signs: 01/17/24 10:35 Temperature 98.0 F Temperature Source Oral Pulse Rate [Right Brachial] 63 Respiratory Rate 20 Blood Pressure [Right Arm] 180/75 H Blood Pressure Mean [Right Arm] 110 Blood Pressure Source [Right Arm] Automatic Cuff Blood Pressure Position [Right Arm] Sitting 02 Sat by Pulse Oximetry 99 Oxygen Delivery Method Room Air Medical Decision Narrative: patient had two small open areas where he had tried to get out the splinter, small piece of splinter noted in one of the opening and was removed however larger piece remains and feels deeper into tissue of base of left ring finger patient reports feels like it is hitting a nerve when it is touched Called and spoke with Yolanda patient willing to go to hand specialist to have it removed, one side of FB is palpable they will see patient today at 2:00pm patient is agreeable to go
[2024-01-17] MEDS: TET/DIPHTH/PERT-ADULT 0.5ML SYRINGE 0.5 ML IM (11:50)
[2024-01-17 11:51] VITALS: BP 180/75; PULSE 63; RESP 20; TEMP 36.7; O2SAT 99
== END 2024-01-17 11:55 | disposition home or self-care (01) ==
PROVIDERS: Emergency Provider Nurse Practitioner; PCP Internal Medicine
DX: S60.454A Superficial foreign body of right ring finger, initial encounter (principal); X58.XXXA Exposure to other specified factors, initial encounter
CPT/HCPCS: 90471; 90715; 99213; G0381

== ENCOUNTER 2024-08-08 17:45 | Observation (INO) | payer MEDICAID, SELFPAY ==
[2024-08-08] VITALS (29 sets, daily range): BP systolic 123–215; BP diastolic 74–122; PULSE 45–70; RESP 11–24; TEMP 36.3–36.8; O2SAT 91–100; BMI 30.7
--- NOTE | 2024-08-08 17:44 | ECG_ITS ---
APPROVED REPORT Exam: Resting ECG HR:48 bpm ECG Measurements Heart Rate [address] 182 P 63 QRSd 110 QRS 98 QT 462 T 40 QTc 428 Conclusion SINUS BRADYCARDIA BORDERLINE RIGHT AXIS DEVIATION [QRS AXIS > 90] BORDERLINE ECG Electronically signed by : ESE ALCANTARA, 08/08/2024 20:51:20
--- NOTE | 2024-08-08 18:17 | XR_ITS ---
PROCEDURE INFORMATION: Exam: XR Chest Exam date and time: 08/08/2024 7:38 PM Age: 59 years old Clinical indication: Pain; Chest pressure; Additional info: Chest pain, SOA TECHNIQUE: Imaging protocol: Radiologic exam of the chest. Views: 1 view. COMPARISON: No relevant prior studies available. FINDINGS: Lungs: Pleuroparenchymal scarring of the lung bases with subsegmental atelectasis is present without consolidations or pleural effusions that project above the diaphragm. Pleural spaces: Unremarkable. No pleural effusion. No pneumothorax. Heart/Mediastinum: Unremarkable. No cardiomegaly. Bones/joints: Unremarkable. IMPRESSION: Pleuroparenchymal scarring of the lung bases with subsegmental atelectasis is present without consolidations or pleural effusions that project above the diaphragm.
[2024-08-08 18:26] LABS: Basophils # 0.1 K/mm3 (0-0.2); Eosinophils # 0.4 Kmm3 (0.0-0.4); Eosinophils % 4.3 % (0.1-12.0); Hematocrit 48.1 % (42.0-52.0); Hemoglobin 16.2 g/dL (14.1-18.0); Immature Granulocytes # 0.01 10^3uL; Immature Granulocytes % 0.1 %; Lymphocytes # 3.2 K/mm3 (0.7-4.5); Lymphocytes % 34.5 % (10-50); Mean Corpuscular HGB Conc 33.7 g/dL (31.8-35.4); Mean Corpuscular Hemoglobin 29.3 pg (27.0-31.2); Monocytes # 0.8 K/mm3 (0.1-1.0); Monocytes % 8.7 % (1.7-9.3); Neutrophils # 4.7 K/mm3 (1.8-7.8); Neutrophils % 51.4 % (37.0-80.0); Nucleated Red Blood Cells # 0 10^3/uL; Nucleated Red Blood Cells % 0 %; Platelet Count 262 K/mm3 (142-424); Red Blood Count 5.53 M/mm3 (4.60-6.20); Red Cell Distribution Width 12.5 % (11.5-17.5); Red Cell Distribution Width-SD 39.5 fL; White Blood Count 9.1 K/mm3 (4.8-10.8)
[2024-08-08] MEDS: NITROGLYCERIN 0.4MG SL TABLET 0.4 MG SL (18:27)
[2024-08-08 18:29] LABS: Alanine Aminotransferase 33 U/L (12-78); Albumin Level 4.7 g/dl (3.5-5.0); Albumin/Globulin Ratio 1.7 (1.1-1.8); Alkaline Phosphatase 73 U/L (38-126); Anion Gap 10.1 mEq/L (5-15); Aspartate Amino Transferase 58 U/L (17-59); Bilirubin,Total 1.1 mg/dl (0.2-1.3); Blood Urea Nitrogen 17 mg/dl (9-20); Calcium 9.9 mg/dl (8.4-10.2); Carbon Dioxide 29 mmol/L (22.0-30.0); Chloride 103 mmol/L (98-107); Creatinine Clearance Estimated 70 mL/min (50-200); Estimated Glomerular Filt Rate 52 ml/min (>60); GFR (African American) 62 ML/MIN (>60); Globulin 2.7 g/dL (1.3-3.2); Glucose 98 mg/dl (74-100); Potassium 4.1 mmoL/L (3.5-5.1); Sodium 138 mmol/L (136-145); Total Protein,Serum 7.4 g/dl (6.3-8.2)
[2024-08-08 18:33] LABS: D-Dimer 0.54 ug/mL (0.0-0.5)
[2024-08-08] MEDS: ASPIRIN 81MG CHEWABLE TABLET 162 MG PO (18:34)
--- NOTE | 2024-08-08 18:36 | HMH.EDCP ---
Discharge Plan Disposition Patient Disposition: Admitted Chief Complaint: Chest Pain Prescriptions Prescriptions: No Action atorvastatin 80 mg tablet 80 mg PO HS Patient Comments: TAKE 1 TABLET BY MOUTH EVERY DAY carvedilol 12.5 mg tablet 12.5 mg PO BID Patient Comments: TAKE 1 TABLET BY MOUTH TWICE A DAY meloxicam 15 mg tablet 15 mg PO DAILY Patient Comments: TAKE 1 TABLET BY MOUTH EVERY DAY isosorbide mononitrate 30 mg tablet extended release 24 hr 30 mg PO DAILY Patient Comments: TAKE 1 TABLET BY MOUTH EVERY DAY omeprazole 20 mg capsule,delayed release(DR/EC) 20 mg PO DAILY Patient Comments: TAKE 1 CAPSULE BY MOUTH EVERY DAY hydralazine 50 mg tablet 50 mg PO TID Patient Comments: TAKE 1 TABLET BY MOUTH 3 TIMES A DAY spironolactone 50 mg tablet 50 mg PO DAILY Patient Comments: TAKE 1 TABLET BY MOUTH EVERY DAY Referrals Follow up/Referrals: Provider,Referral, MD [Primary Care Provider] - See instructions Clinical Impressions Clinical Impression: ACS (acute coronary syndrome) Print Language Print Language: Maldivian Discharge ED Provider: [facility] General Chief Complaint: Chest Pain Stated Complaint: Chest Pain Time Seen by Provider: 08/08/24 17:47 Mode of Arrival: Ambulatory Source of Information: Patient Description of Symptoms (Recalled from ER Triage Doc. by RN): pt presents to ED with c/o chest pain that began approx 3 pm. pt reports crushing pain in center of chest. History of Present Illness HPI narrative: Patient is 59-year-old male with past medical history of hypertension on multiple medications including carvedilol hydralazine isosorbide and spironolactone who presents emergency department for evaluation of chest pain. Onset was acute, since 3 PM, substernal, does not radiate through to his back. He quit smoking 16 days ago. There is no associated cough. Chest pain is 9 out of 10 in intensity. No other acute complaints at this time. Related Data Home Medications ?Medication ?Instructions ?Recorded ?Confirmed atorvastatin 80 mg tablet 80 mg PO HS 01/17/24 08/08/24 carvedilol 12.5 mg tablet 12.5 mg PO BID 01/17/24 08/08/24 hydralazine 50 mg tablet 50 mg PO TID 01/17/24 08/08/24 isosorbide mononitrate 30 mg 30 mg PO DAILY 01/17/24 08/08/24 tablet,extended release 24 hr Allergies Allergy/AdvReac Type Severity Reaction Status Date / Time No Known Allergies Allergy Verified 09/10/23 17:08 [facility] Disclaimer: The information contained in this section may have been updated after the patient was seen, as this information can be updated by other users. Social History Smoking Status: Former smoker tobacco type: cigarettes packs per day: 1 second hand exposure: No alcohol intake: never current occupational status: unemployed Travel in the last 8 weeks?: None caffeine: Yes Have you lived/traveled outside US in past 30 days?: No Contact w/someone who lives/traveled outside US past 30 days?: No Exposure to someone with infectious disease in past 14 days?: No Do you have a fever (greater than 100.4 F or 38 C)?: No Have you tested positive for COVID-19?: No Exposed to someone with COVID-19 in past 14 days?: No Do you have a sore throat?: No Do you have a cough?: No Do you have any weakness?: No Do you have any diarrhea?: No Are you experiencing any unusual bleeding?: No Do you have any muscle aches/pain?: No Do you have any abdominal pain?: No Are you experiencing loss of taste or smell?: No Other Medical History Have you received the Flu Vaccine for this season: No Have you received the Pneumonia Vaccine: No ROS Obtained: Yes All systems reviewed & no additional complaints except as documented Physical Exam General General appearance: alert and other (Appearing uncomfortable in bed) Head Head exam: atraumatic and normocephalic Eye Eye exam: Present PERRL and EOMI ENT ENT exam: Present mucous membranes moist Neck Neck exam: Present normal inspection Chest Chest inspection: Present normal inspection and symmetric chest wall rise Respiratory Respiratory exam: Present normal lung sounds bilaterally; Absent respiratory distress Cardiovascular Cardiovascular exam: Present regular rate and normal rhythm Abdominal Exam Abdominal exam: Present soft; Absent tenderness Extremities Exam Extremities exam: Present normal inspection Neurological Exam Neurological exam: Present alert Psychiatric Psychiatric exam: Present normal affect Skin Skin exam: Present warm and dry HEART Score HEART Score HEART Score assessment performed?: Yes History (anamnesis): Highly suspicious ECG: Non-specific disturbance Age: 45-65 years Risk factors: 1-2 risk factors Troponin: > 3x normal limit HEART Score: 7 Critical Care Critical Care Time Critical Care Time: Yes Attestation: On 08/08/24, the high probability of a clinically significant, sudden or life threatening deterioration of the following system(s) required my full and direct attention, intervention and personal management. The time I documented below is in addition to time spent performing reported procedures but includes the following listed in this critical care notation. Total Time Total Critical Care Time: 35 Medical Decision Making [place] Inquiry Pt receiving controlled substance: No Vital Signs Vital Signs: 08/08/24 17:49 08/08/24 18:31 Temperature 97.6 F Temperature Source Oral Pulse Rate 50 L Pulse Rate [Left Radial] 45 L Respiratory Rate 12 15 Blood Pressure 182/110 H Blood Pressure [Right Arm] 197/118 H Blood Pressure Mean [Right Arm] 144 02 Sat by Pulse Oximetry 100 94 L Lab Data Labs: Lab Results 08/08/24 17:45: WBC 9.1, RBC 5.53, Hgb 16.2, Hct 48.1, MCV 87.0, MCH 29.3, MCHC 33.7, RDW 12.5, Plt Count 262, MPV 10.0, Neut % (Auto) 51.4, Lymph % (Auto) 34.5, [place] % (Auto) 8.7, Eos % (Auto) 4.3, Baso % (Auto) 1.0, Neut # (Auto) 4.7, Lymph # (Auto) 3.2, [place] # (Auto) 0.8, Eos # (Auto) 0.4, Baso # (Auto) 0.1, APTT 33.0 L, D-Dimer 0.54 H, Sodium 138, Potassium 4.1, Chloride 103, Carbon Dioxide 29, Anion Gap 10.1, BUN 17, Creatinine 1.40 H, Estimated Creat Clear 70, Estimated GFR 52 L, Est GFR ( Amer) 62, Glucose 98, Calcium 9.9, Total Bilirubin 1.1, AST 58, ALT 33, Alkaline Phosphatase 73, Troponin I 1.97 H, NT-Pro-B Natriuret Pep 106, Total Protein 7.4, Albumin 4.7, Globulin 2.7, Albumin/Globulin Ratio 1.7, HCV Ab BARBI w/Rflx PCR Qn Reactive, HIV Ag/Ab Combo Qual Negative 08/08/24 17:45 08/08/24 17:45 Response Orders (Tests/Meds): ED MEDICATIONS Generic Name Dose Route Start Last Admin Trade Name Freq PRN Reason Stop Dose Admin Nitroglycerin/Dextrose 250 mls @ 1.5 mls/hr 08/08/24 18:45 08/08/24 18:45 Nitroglycerin 50mg/250ml D5w IV 09/07/24 18:44 5 mcg/min .Q24H ALBERT 1.5 mls/hr Administration Protocol 5 MCG/MIN Heparin Sodium/Dextrose 500 mls @ 20 mls/hr 08/08/24 19:15 Heparin 25,000 Units In D5w 500ml Premix IV 09/07/24 19:14 .Q25H ALBERT 1,000 UNITS/HR Miscellaneous 1 each 08/08/24 19:00 Heparin Drip Consult NOTAPPLIC 09/07/24 18:59 CONSULT PHARMACY ALBERT Discontinued Medications Generic Name Dose Route Start Last Admin Trade Name Freq PRN Reason Stop Dose Admin Aspirin 162 mg 08/08/24 18:20 08/08/24 18:34 Aspirin 81mg Chewable Tablet PO 08/08/24 18:21 162 mg ONCE ONE Administration Heparin Sodium (Porcine) 4,000 unit 08/08/24 19:15 Heparin Sodium 5,000 Unit/Ml Vial IV 08/08/24 19:16 ONCE ONE Heparin Sodium (Porcine) 4,500 unit 08/08/24 19:15 Heparin Sodium 5,000 Unit/Ml Vial IV 08/08/24 19:16 ONCE ONE Morphine Sulfate 4 mg 08/08/24 18:53 08/08/24 18:55 Morphine 4mg/Ml Syringe IV 08/08/24 18:54 4 mg ONCE ONE Administration Nitroglycerin 0.4 mg 08/08/24 18:20 08/08/24 18:27 Nitroglycerin 0.4mg Sl Tablet SL 08/08/24 18:21 0.4 mg ONCE ONE Administration ORDERS Category Date Time Status XR chest portable Stat Exams 08/08/24 18:17 Ordered Complete Blood Count Auto Diff Stat Lab 08/08/24 17:45 Completed Comprehensive Metabolic Panel Stat Lab 08/08/24 17:45 Completed D-Dimer Stat Lab 08/08/24 17:45 Completed Full Resp Panel w/COVID ([facility]) Routine Lab 08/08/24 18:35 Received HCV RNA PCR, Quant Stat Lab 08/08/24 17:45 Received HIV Combo Stat Lab 08/08/24 17:45 Completed Heparin drip PTT [PTT Heparin (inpatient only)] Stat Lab 08/09/24 02:00 Ordered Hepatitis C Ab Qual. W/ RFX Stat Lab 08/08/24 17:45 Completed NT Pro Brain Natriuretic Pep. Stat Lab 08/08/24 17:45 Completed PTT Heparin (inpatient only) Stat Lab 08/08/24 17:45 Completed Troponin I Q3H Lab 08/08/24 21:30 Ordered Troponin I Q3H Lab 08/09/24 00:30 Ordered Troponin I Stat Lab 08/08/24 17:45 Completed ECG Data Tracing #1: ECG Narrative: Independently interpreted by me rate is 48, rhythm is regular, sinus bradycardia with incomplete bundle branch block, no ST elevation in anatomical contiguous leads, QTc 428. MDM Narrative Medical Decision Narrative: In summary patient is 59-year-old male with past medical history described above who presents emergency department for evaluation of chest pain. Patient is hemodynamically stable nontoxic-appearing upon arrival, afebrile, significantly hypertensive multiple readings over 200 systolic. Patient was given sublingual nitroglycerin with some improvement of symptoms. Given this I suspect he is having hypertensive emergency with chest pain with significant afterload will undergo nitroglycerin drip given that he does not have any inferior ischemia on EKG. Workup we conducted with hematologic labs, troponins, chest x-ray. Initial workup reviewed by me hematologic labs are markable for significantly elevated troponin. Repeat EKG shows dynamic scheming in the inferior leads. Case discussed with Dr. Henriquez, given his significant hypertension is likely due to increased afterload with a type II NSTEMI. We will titrate nitroglycerin to see if patient can become chest pain-free. Nitroglycerin was rapidly titrated up to 60 mcg/min and patient was chest pain-free, heparin drip was started with 50 units/kg bolus followed by drip. At this point cardiology recommends admission and catheterization in the morning. Case discussed with hospital medicine regarding management they will meet the patient their service for continued evaluation at this time.
[2024-08-08 18:38] LABS: Adenovirus,PCR Not Detected (NotDetected); Bordetella Pertussis Not Detected (NotDetected); Chlamydophila Pneumoniae, PCR Not Detected (NotDetected); Coronavirus 19, PCR Not Detected (NotDetected); Coronavirus 229E Not Detected (NotDetected); Coronavirus NL63 Not Detected (NotDetected); Coronavirus OC43 Not Detected (NotDetected); Coronovirus HKU1,PCR Not Detected (NotDetected); Human Metapneumovirus Not Detected (NotDetected); Influenza A, PCR Not Detected (NotDetected); Influenza AH1, 2009 Not Detected (NotDetected); Influenza AH1, PCR Not Detected (NotDetected); Influenza AH3,PCR Not Detected (NotDetected); Influenza B, PCR Not Detected (NotDetected); Mycoplasma Pneumoniae, PCR Not Detected (NotDetected); Parainfluenza 1, PCR Not Detected (NotDetected); Parainfluenza 2, PCR Not Detected (NotDetected); Parainfluenza 3, PCR Not Detected (NotDetected); Parainfluenza 4, PCR Not Detected (NotDetected); Respiratory Syncytial Virus Not Detected (NotDetected); Rhinovirus/Enterovirus Not Detected (NotDetected)
[2024-08-08 18:41] LABS: NT Pro Brain Natriuretic Pep. 106 pg/mL (0-125)
[2024-08-08] MEDS: NITROGLYCERIN IN 5 % DEXTROSE 250 ML 1.5 MG IV (18:45)
--- NOTE | 2024-08-08 18:49 | PC.NURSE ---
Dr Jefferson notified of critical troponin
[2024-08-08 18:50] LABS: Troponin I 1.97 ng/ml (0.00-0.034)
--- NOTE | 2024-08-08 18:53 | ECG_ITS ---
APPROVED REPORT Exam: Resting ECG HR:51 bpm ECG Measurements Heart Rate 51 AXES MS 200 P 62 QRSd 107 QRS 111 QT 461 T 8 QTc 438 Conclusion SINUS BRADYCARDIA POSSIBLE RIGHT VENTRICULAR HYPERTROPHY [SOME/ALL OF: PROMINENT R IN V1, LATE TRANSITION, RAD, TAYLA, SSS] ABNORMAL ECG Electronically signed by : ESE ALCANTARA, 08/08/2024 20:50:22
[2024-08-08] MEDS: MORPHINE 4MG/ML SYRINGE 4 MG IV (18:55)
--- NOTE | 2024-08-08 18:56 | PC.NURSE ---
Merritt Jefferson is s/w Dr Henriquez
[2024-08-08 19:01] LABS: HIV Combo NEGATIVE (Negative)
--- NOTE | 2024-08-08 19:01 | PC.NURSE ---
notified Dr. Jefferson of critical trop.
[2024-08-08 19:10] LABS: Hepatitis C Ab Qual. W/ RFX REACTIVE (Negative)
--- NOTE | 2024-08-08 19:16 | PC.NURSE ---
Dr. Jefferson notified of PTT of 33
--- NOTE | 2024-08-08 19:27 | ECG_ITS ---
APPROVED REPORT Exam: Resting ECG HR:59 bpm ECG Measurements Heart Rate 59 AXES ID 201 P 53 QRSd 107 QRS 126 QT 439 T -7 QTc 438 Conclusion SINUS BRADYCARDIA POSSIBLE RIGHT VENTRICULAR HYPERTROPHY [SOME/ALL OF: PROMINENT R IN V1, LATE TRANSITION, RAD, TAYLA, SSS] POSSIBLE ANTERIOR MYOCARDIAL INFARCTION , PROBABLY OLD [30 ms Q WAVE IN V3/V4, OR R < 0.2 mV IN V4] ABNORMAL ECG UNCONFIRMED REPORT Electronically signed by : Paul Foster MD 08/09/2024 07:32:18
--- NOTE | 2024-08-08 19:31 | EXP.HP ---
History of Present Illness *Admission Date: 08/08/24 *Reason for visit:: Chest pain *History of present illness: 59-year-old male presents to the ER with typical angina 3 days duration. States he was moving heavy object at home when he started developing substernal, crushing, heavy chest pain with radiation to the left side. Mild dyspnea associated. Thought he pulled his chest at that time and tried to rest however the pain continued to progress over the course of 3 days. He is brought to the emergency department by his . Upon arrival, hypertensive systolics 220 mmHg, EKG normal sinus rhythm with ST deviations in the inferolateral leads, likely repol abnormality. Patient was started on nitroglycerin drip with improvement blood pressure to systolics of 160s-180 mmHg. Given aspirin, morphine and started on heparin drip with mild improvement of his chest pain however still endorses some atypical stabbing left-sided symptoms. Repeat EKG with dynamic changes including inferior nonspecific T wave inversions. Chest x-ray with mild pulmonary vascular congestion bilaterally. Cardiac silhouette normal. Otherwise no acute findings. Discussed the case with ER physician and interventional cardiology. I independently reviewed and interpretted CXR, lab findings and EKG. history obtained by myself. reviewed prior documentation from prior physician evaluations. [facility] Disclaimer: The information contained in this section may have been updated after the patient was seen, as this information can be updated by other users. Social History Smoking Status: Former smoker tobacco type: cigarettes packs per day: 1 second hand exposure: No alcohol intake: never current occupational status: unemployed Travel in the last 8 weeks?: None caffeine: Yes Have you lived/traveled outside US in past 30 days?: No Contact w/someone who lives/traveled outside US past 30 days?: No Exposure to someone with infectious disease in past 14 days?: No Do you have a fever (greater than 100.4 F or 38 C)?: No Have you tested positive for COVID-19?: No Exposed to someone with COVID-19 in past 14 days?: No Do you have a sore throat?: No Do you have a cough?: No Do you have any weakness?: No Do you have any diarrhea?: No Are you experiencing any unusual bleeding?: No Do you have any muscle aches/pain?: No Do you have any abdominal pain?: No Are you experiencing loss of taste or smell?: No Other Medical History Have you received the Flu Vaccine for this season: No Have you received the Pneumonia Vaccine: No Review of Systems Review of Systems Review of systems:: pertinent systems reviewed and negative unless documented below Constitutional Constitutional: Denies chills and Denies frequent falls Eyes Eyes: Denies blind spots and Denies blurry vision ENT Ears, Nose, Mouth, and Throat: Denies dizziness, Denies neck pain and Denies vertigo *Cardiovascular Cardiovascular: Reports chest pain, Reports chest pain at rest, Reports chest pain with activity, Denies claudication and Reports dyspnea on exertion *Respiratory Respiratory: Denies chest congestion and Reports dyspnea on exertion *Gastrointestinal Gastrointestinal: Denies coffee ground emesis and Denies heartburn *Genitourinary Genitourinary: Reports system reviewed and no additional complaints, except as documented *Musculoskeletal Musculoskeletal: Denies muscle cramps, Denies muscle weakness and Denies neck pain *Neurologic Neurologic: Denies dizziness, Denies frequent falls and Denies vertigo Meds Home Medications and Allergies Home Medications ?Medication ?Instructions ?Recorded ?Confirmed ?Type atorvastatin 80 mg tablet 80 mg PO HS 01/17/24 08/08/24 History carvedilol 12.5 mg tablet 12.5 mg PO BID 01/17/24 08/08/24 History hydralazine 50 mg tablet 50 mg PO TID 01/17/24 08/08/24 History isosorbide mononitrate 30 mg 30 mg PO DAILY 01/17/24 08/08/24 History tablet,extended release 24 hr aspirin 81 mg tablet 81 mg PO DAILY 08/08/24 08/08/24 History clonidine HCl 0.2 mg tablet 0.2 mg PO TID 08/08/24 08/08/24 History New Prescriptions to Start Prescriptions: Allergies Allergy/AdvReac Type Severity Reaction Status Date / Time No Known Allergies Allergy Verified 09/10/23 17:08 Exam Data for Last 24 hours Vital signs and Labs for Last 24 Hours: Temp Pulse Resp BP Pulse Ox 97.6 F 60 14 160/99 H 96 08/08/24 17:49 08/08/24 19:20 08/08/24 19:20 08/08/24 19:20 08/08/24 19:20 Laboratory Results - last 24 hr 08/08/24 17:45: WBC 9.1, RBC 5.53, Hgb 16.2, Hct 48.1, MCV 87.0, MCH 29.3, MCHC 33.7, RDW 12.5, Plt Count 262, MPV 10.0, Neut % (Auto) 51.4, Lymph % (Auto) 34.5, [place] % (Auto) 8.7, Eos % (Auto) 4.3, Baso % (Auto) 1.0, Neut # (Auto) 4.7, Lymph # (Auto) 3.2, [place] # (Auto) 0.8, Eos # (Auto) 0.4, Baso # (Auto) 0.1, APTT 33.0 L, D-Dimer 0.54 H, Sodium 138, Potassium 4.1, Chloride 103, Carbon Dioxide 29, Anion Gap 10.1, BUN 17, Creatinine 1.40 H, Estimated Creat Clear 70, Estimated GFR 52 L, Est GFR ( Amer) 62, Glucose 98, Calcium 9.9, Total Bilirubin 1.1, AST 58, ALT 33, Alkaline Phosphatase 73, Troponin I 1.97 H, NT-Pro-B Natriuret Pep 106, Total Protein 7.4, Albumin 4.7, Globulin 2.7, Albumin/Globulin Ratio 1.7, HCV Ab BARBI w/Rflx PCR Qn Reactive, HIV Ag/Ab Combo Qual Negative I & O for Last 24 hours: Intake & Output 08/05/24 08/06/24 08/07/24 08/08/24 23:59 23:59 23:59 23:59 Intake Total 1.55 / 1.55 Balance 1.55 / 1.55 Weight 88.904 kg Constitutional Constitutional: mild distress and cooperative *Routine HEENT Exam Head: Present normocephalic Eye: Present EOMI ENT: Present mucous membranes moist *Routine Neck Exam Neck: Present supple; Absent JVD *Routine Respiratory Exam Respiratory: Absent accessory muscle use or decreased breath sounds *Routine Cardiovascular Exam Cardiovascular: Present RRR, Normal S1 and Normal S2; Absent murmur *Routine Abdominal Exam Abdominal: Present soft and normoactive bowel sounds *Routine Rectal Exam Rectal:: deferred *Routine Genitalia Exam Genitalia:: deferred *Routine Extremities Exam Extremities: Absent cyanosis or edema *Routine Skin Exam Skin: Present intact and dry *Routine Neurological Exam Neurological: Present alert and oriented X3 Assessment and Plan *Assessment and plan (1) ACS (acute coronary syndrome): Status: Acute Category: Medical Code(s): I24.9 - Acute ischemic heart disease, unspecified (2) NSTEMI (non-ST elevated myocardial infarction): Status: Acute Category: Medical Code(s): I21.4 - Non-ST elevation (NSTEMI) myocardial infarction (3) Hypertensive emergency: Status: Acute Category: Medical Code(s): I16.1 - Hypertensive emergency (4) AUGUSTO (acute kidney injury): Status: Acute Category: Medical Code(s): N17.9 - Acute kidney failure, unspecified (5) HLD (hyperlipidemia): Status: Acute Category: Medical Code(s): E78.5 - Hyperlipidemia, unspecified (6) Tobacco abuse: Status: Acute Category: Medical Code(s): Z72.0 - Tobacco use Plan 59-year-old male multiple cardiovascular risk factors presenting with hypertensive emergency and typical angina, found to have AUGUSTO and NSTEMI. EKG with dynamic inferolateral ST changes. Symptoms largely resolved with blood pressure control including nitroglycerin drip. Patient is also on ACS heparin and received aspirin. At this time will admit to ICU, however if this chest pain recurs will send for urgent left heart catheterization. chronic HTN acute Hypertensive emergency NSTEMI - acute exacerbation of chronic hypertension with end organ damage, including life threatening myocardial infarction - At this time chest pain resolved and he is hemodynamically and electrically stable - Echo -Telemetry - Cardiology consult - Aspirin - Heparin drip - Nitroglycerin drip - Potentially going for left heart catheterization urgently if symptoms recur - Titrate to p.o. antihypertensives as tolerated - HTN - wean clonidine to off - d/c hydralazine - continue coreg - add yoly/ arb post PR once renal function improves - consider nifedipine for antinginal / bp AUGUSTO - Baseline 1.2 creatinine, currently 1.4. Likely end organ damage secondary to hypertensive emergency. Should improve with blood pressure control. Will monitor I's and O's and daily BMP Hyperlipidemia - Atorvastatin 80 mg - Lipid panel Aortic iliac calcific plaque manage - risk factor modification for secondary prevention - EZE in near future, can be perfomed outpatient on [facility] up
[2024-08-08] MEDS: HEPARIN SODIUM 5,000 UNIT/ML VIAL 4500 UNIT IV (19:32)
[2024-08-08] MEDS: HEPARIN SODIUM,PORCINE/D5W 500 ML 20 UNIT IV (19:32)
--- NOTE | 2024-08-08 19:32 | PC.NURSE ---
Confirmed Dr. Jefferson would like to to start heparin drip with PTT of 33
[2024-08-08] MEDS: HEPARIN DRIP CONSULT 1 EACH NOTAPPLIC (19:39)
--- NOTE | 2024-08-08 19:42 | PC.NURSE ---
Dr. Jefferson notified of PTT of 33
--- NOTE | 2024-08-08 20:05 | PC.NURSE ---
Report given to Tia in ICU; ICU to transport to unit
--- NOTE | 2024-08-08 20:20 | PC.NURSE ---
Patient arrived to floor via stretcher from ED at 20:18.
--- NOTE | 2024-08-08 20:33 | IR_ITS ---
APPROVED REPORT Patient Location: Emergent PROCEDURES Left heart catheterization Left ventriculogram Selective coronary angiogram Bilateral selective renal angiogram INDICATION Acute non-ST elevation myocardial infarction, Malignant hypertension, Creatinine 1.4, Suspect renal artery stenosis, Suspected renovascular hypertension Informed consent was obtained prior to the procedure. COMPLICATIONS none Estimated Blood Loss: less than 10ml TECHNIQUE One percent lidocaine used to anesthetize the right anterior aspect of the wrist. The right radial artery was accessed via the Seldinger technique. A 6 Bel[place]ian sheath was placed in the right radial artery. 2.5 mg of Verapamil, 800 mcg of nitroglycerin, 1mg Lidocaine and 5000 U Heparin were given through the arterial sheath. The JL3 catheter was also used to perform left heart catheterization, left ventriculogram and selective coronary angiogram. At the end of the cardiac catheterization the JL 4 guide catheter was used to perform bilateral selective renal angiography. At the end the procedure the apparatus was removed the sheath was removed and hemostasis was achieved using TR banding patient was transferred to the postop putting in stable condition ANGIOGRAPHIC RESULTS The left main artery Normal The left anterior descending artery Is a large tortuous vessel with proximal and mid vessel 20% stenosis. 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 Discontinue hydralazine and clonidine 2. Increase carvedilol and add verapamil for hypertension control 3. Formal echocardiogram to determine if hyperdynamic outflow tract obstruction 4. Maximize antianginals 5. I am hesitant to stent the large first obtuse marginal artery given the patient has poorly controlled hypertension and untreated hyperlipidemia. I believe this vessel will respond favorably to aggressive hypertensive medical management and risk factor modification 6. Consider outpatient stress test after blood pressure is better controlled 7. Suspect type II myocardial infarction from untreated hypertensive heart disease Electronically signed by : Simon Henriquez MD 08/08/2024 21:41:50
[2024-08-08 20:45] LABS: Basophils # 0.1 K/mm3 (0-0.2); Eosinophils # 0.5 Kmm3 (0.0-0.4); Eosinophils % 4.5 % (0.1-12.0); Hematocrit 46.4 % (42.0-52.0); Hemoglobin 15.7 g/dL (14.1-18.0); Immature Granulocytes # 0.03 10^3uL; Immature Granulocytes % 0.3 %; Lymphocytes # 3.3 K/mm3 (0.7-4.5); Lymphocytes % 30.7 % (10-50); Mean Corpuscular HGB Conc 33.8 g/dL (31.8-35.4); Mean Corpuscular Volume 85.8 fl (80-94); Mean Platelet Volume 9.8 fl (7.4-10.4); Monocytes # 0.7 K/mm3 (0.1-1.0); Monocytes % 6.6 % (1.7-9.3); Neutrophils % 56.9 % (37.0-80.0); Nucleated Red Blood Cells # 0 10^3/uL; Nucleated Red Blood Cells % 0 %; Platelet Count 254 K/mm3 (142-424); Red Blood Count 5.41 M/mm3 (4.60-6.20); Red Cell Distribution Width 12.4 % (11.5-17.5); Red Cell Distribution Width-SD 38.7 fL; White Blood Count 10.6 K/mm3 (4.8-10.8)
[2024-08-08 20:51] LABS: Chloride 106 mmol/L (98-107); Potassium 4.1 mmoL/L (3.5-5.1); Sodium 134 mmol/L (136-145)
[2024-08-08 20:54] LABS: Anion Gap 10.1 mEq/L (5-15); Blood Urea Nitrogen 16 mg/dl (9-20); Calcium 9.6 mg/dl (8.4-10.2); Carbon Dioxide 22 mmol/L (22.0-30.0); Creatinine Clearance Estimated 70 mL/min (50-200); Estimated Glomerular Filt Rate 52 ml/min (>60); GFR (African American) 62 ML/MIN (>60); Glucose 119 mg/dl (74-100)
--- NOTE | 2024-08-08 20:54 | PC.NURSE ---
Patient left floor with staff for malthouse laborer at 20:45.
[2024-08-08] MEDS: LIDOCAINE 1% 10ML MDV 10 ML IJ (21:25)
[2024-08-08] MEDS: NITROGLYCERIN 800MCG/8ML SYR (CATH LAB) 800 MCG IA (21:25)
[2024-08-08] MEDS: 0.9 % SODIUM CHLORIDE 500 ML 25 ML IV (21:25)
[2024-08-08] MEDS: VERAPAMIL 2.5MG/ML 2ML VIAL 2.5 MG IV (21:25)
[2024-08-08] MEDS: HEPARIN 1,000 UNITS/500ML NS (CATH LAB) 3000 UNIT IV (21:26)
[2024-08-08] MEDS: MIDAZOLAM HCL 1MG/ML 5ML VIAL 1 MG IV (21:29)
[2024-08-08] MEDS: FENTANYL 100MCG/2ML VIAL 50 MCG IV (21:29)
[2024-08-08 21:32] LABS: Troponin I 5.37 ng/ml (0.00-0.034)
--- NOTE | 2024-08-08 21:45 | P.EN_ITS ---
heart cath normal coronaries. LV gram hyperdynamic, suspect LVOT obstruction. starting dilt 180mg. hold yoly/arb until Cr improves. no nifedipine per H&P. will follow up echo.
--- NOTE | 2024-08-08 21:45 | EXP.EVENT.NO ---
heart cath normal coronaries. LV gram hyperdynamic, suspect LVOT obstruction. starting dilt 180mg. hold oyly/arb until Cr improves. no nifedipine per H&P. will follow up echo.
--- NOTE | 2024-08-08 21:48 | SUR.OPER ---
Simon Henriquez MD instructed this RN to dc heparin drip, but to restart nitro drip @18ml/hr
--- NOTE | 2024-08-08 22:15 | PC.NURSE ---
Patient back on floor from cardiac cath lab technologist at 22:12.
[2024-08-08] MEDS: NICOTINE 21MG/24HR PATCH 21 MG TD (23:25)
[2024-08-08] MEDS: ATORVASTATIN 40MG TABLET 80 MG PO (23:33)
[2024-08-08] MEDS: ACETAMINOPHEN 325MG TAB 650 MG PO (23:33)
[2024-08-08] MEDS: PANTOPRAZOLE 40MG TABLET 40 MG PO (23:33)
[2024-08-09] VITALS (22 sets, daily range): BP systolic 124–180; BP diastolic 62–102; PULSE 49–64; RESP 14–18; TEMP 36.3–36.7; O2SAT 91–99; BMI 30.2
[2024-08-09 02:09] LABS: PTT Heparin (inpatient only) 31.1 Seconds (50-75)
[2024-08-09] MEDS: HYDROCODONE/APAP 5/325 MG TABLET 1 TAB PO ×2 (03:18→09:28)
[2024-08-09] MEDS: ACETAMINOPHEN 325MG TAB 650 MG PO (06:27)
[2024-08-09 06:36] LABS: Basophils # 0.1 K/mm3 (0-0.2); Hematocrit 40.9 % (42.0-52.0); Lymphocytes # 2.5 K/mm3 (0.7-4.5); Mean Corpuscular HGB Conc 34.5 g/dL (31.8-35.4); Nucleated Red Blood Cells # 0 10^3/uL; Nucleated Red Blood Cells % 0 %; Red Cell Distribution Width 12.4 % (11.5-17.5)
[2024-08-09 06:48] LABS: INR 0.99 (0.9-1.1); Prothrombin Time 11.1 seconds (10.1-12.5)
[2024-08-09 06:49] LABS: Alanine Aminotransferase 31 U/L (12-78); Albumin/Globulin Ratio 1.7 (1.1-1.8); Alkaline Phosphatase 66 U/L (38-126); Anion Gap 7.1 mEq/L (5-15); Aspartate Amino Transferase 59 U/L (17-59); Bilirubin,Total 0.9 mg/dl (0.2-1.3); Blood Urea Nitrogen 17 mg/dl (9-20); Carbon Dioxide 27 mmol/L (22.0-30.0); Chloride 106 mmol/L (98-107); Cholesterol 149 mg/dl (140-200); Creatinine Clearance Estimated 64 mL/min (50-200); Estimated Glomerular Filt Rate 48 ml/min (>60); GFR (African American) 58 ML/MIN (>60); Globulin 2.4 g/dL (1.3-3.2); Glucose 97 mg/dl (74-100); HDL Cholesterol 25 mg/dl (40-60); Magnesium 1.8 mg/dl (1.6-2.3); Phosphorous 4.7 mg/dl (2.5-4.5); Potassium 4.1 mmoL/L (3.5-5.1); Sodium 136 mmol/L (136-145); Total Protein,Serum 6.4 g/dl (6.3-8.2); Triglycerides 279 mg/dl (30-150); VLDL Cholesterol 56 mg/dL (0-40)
[2024-08-09 07:00] LABS: Direct LDL Cholesterol 74.43 mg/dL (100-129)
[2024-08-09] MEDS: CALCIUM CARBONATE 500MG CHEWTAB 500 MG PO (07:01)
[2024-08-09 07:07] LABS: Troponin I 6.28 ng/ml (0.00-0.034)
[2024-08-09 07:15] LABS: Basophils % 0.8 % (0.1-2.0); Eosinophils # 0.5 Kmm3 (0.0-0.4); Eosinophils % 4.2 % (0.1-12.0); Immature Granulocytes # 0.04 10^3uL; Immature Granulocytes % 0.4 %; Lymphocytes % 23.7 % (10-50); Mean Corpuscular Hemoglobin 29.7 pg (27.0-31.2); Mean Corpuscular Volume 86.1 fl (80-94); Mean Platelet Volume 10.2 fl (7.4-10.4); Monocytes % 9.3 % (1.7-9.3); Neutrophils # 6.6 K/mm3 (1.8-7.8); Neutrophils % 61.6 % (37.0-80.0); Platelet Count 240 K/mm3 (142-424); Red Blood Count 4.75 M/mm3 (4.60-6.20); Red Cell Distribution Width-SD 39.2 fL; White Blood Count 10.7 K/mm3 (4.8-10.8)
[2024-08-09 07:33] LABS: Hemoglobin 14.1 g/dL (14.1-18.0)
[2024-08-09] MEDS: IOPAMIDOL-370 (76%);100ML BOTTLE 90 ML IV (08:22)
[2024-08-09] MEDS: CARVEDILOL 12.5MG TABLET 12.5 MG PO ×2 (09:24→20:35)
[2024-08-09] MEDS: ASPIRIN EC 81MG TABLET 81 MG PO (09:24)
[2024-08-09] MEDS: IRBESARTAN 75MG TABLET 75 MG PO ×2 (09:24→14:52)
[2024-08-09] MEDS: ISOSORBIDE MONO 30MG TAB.ER.24H 30 MG PO (09:24)
--- NOTE | 2024-08-09 09:29 | HMH.PHAINT1 ---
Pharmacy Intervention Comments: MEDICATION RECONCILIATION COMPLETED ON PATIENT USING EXTERNAL FILL HISTORY FROM PHARMACY. -RACHELLE DELEON, RACHAELD
--- NOTE | 2024-08-09 09:52 | EXP.CARD.CON ---
History of Present Illness History of Present Illness Consult date: 08/09/24 Requesting physician: Shan Henriquez Consult reason: chest pain Chief complaint: chest pain History of present illness: 59 yo WM without known CVD presented to ED with c/o worsening episodic chest heaviness with radiation to left arm, worse with activity, slightly better with rest. States he was moving heavy object at home when he started developing substernal, crushing, heavy chest pain with radiation to the left side. On arrival to ER BP was 220 systolic. Trop 1.9. Non specific ST changes on EKG. Symptoms were improving with Ntg. 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 Found to have moderate dz in obtuse marginal and septal stopper maker which were left to medical management due to what appeared to be septal hypertrophy with possible outflow tract obstruction. Recommendation was made to control BP, check ECHO for LVOT obstruction, and consider OP stress imaging. This morning patient is symptom free with BP 130s. ECHO is pending. [facility] Disclaimer: The information contained in this section may have been updated after the patient was seen, as this information can be updated by other users. Social History Smoking Status: Former smoker tobacco type: cigarettes packs per day: 1 second hand exposure: No alcohol intake: never current occupational status: unemployed Travel in the last 8 weeks?: None caffeine: Yes Have you lived/traveled outside [place] in past 30 days?: No Contact w/someone who lives/traveled outside US past 30 days?: No Exposure to someone with infectious disease in past 14 days?: No Do you have a fever (greater than 100.4 F or 38 C)?: No Have you tested positive for COVID-19?: No Exposed to someone with COVID-19 in past 14 days?: No Do you have a sore throat?: No Do you have a cough?: No Do you have any weakness?: No Do you have any diarrhea?: No Are you experiencing any unusual bleeding?: No Do you have any muscle aches/pain?: No Do you have any abdominal pain?: No Are you experiencing loss of taste or smell?: No Review of Systems Constitutional Constitutional: Denies frequent falls Eyes Eyes: Denies loss of vision ENT Ears, Nose, Mouth, and Throat: Denies dizziness and Denies vertigo *Cardiovascular Cardiovascular: Denies chest pain and Denies dyspnea *Respiratory Respiratory: Denies cough and Denies dyspnea *Gastrointestinal Gastrointestinal: Denies change in stool character, Denies nausea and Denies vomiting *Genitourinary Genitourinary: Denies difficulty urinating *Musculoskeletal Musculoskeletal: Denies muscle weakness Integumentary/Breasts Skin/Breast: Denies changing lesions *Neurologic Neurologic: Denies dizziness, Denies frequent falls, Denies loss of vision and Denies vertigo Exam Data for Last 24 hours Vital signs and Labs for Last 24 Hours: Temp Pulse Resp BP Pulse Ox O2 Del Method O2 Flow Rate 97.9 F 53 L 15 151/86 H 98 Room Air 94 08/09/24 08:00 08/09/24 08:00 08/09/24 08:00 08/09/24 08:00 08/09/24 08:00 08/09/24 08:00 08/09/24 03:00 Laboratory Results - last 24 hr 08/08/24 17:45: WBC 9.1, RBC 5.53, Hgb 16.2, Hct 48.1, MCV 87.0, MCH 29.3, MCHC 33.7, RDW 12.5, Plt Count 262, MPV 10.0, Neut % (Auto) 51.4, Lymph % (Auto) 34.5, [place] % (Auto) 8.7, Eos % (Auto) 4.3, Baso % (Auto) 1.0, Neut # (Auto) 4.7, Lymph # (Auto) 3.2, [place] # (Auto) 0.8, Eos # (Auto) 0.4, Baso # (Auto) 0.1, APTT 33.0 L, D-Dimer 0.54 H, Sodium 138, Potassium 4.1, Chloride 103, Carbon Dioxide 29, Anion Gap 10.1, BUN 17, Creatinine 1.40 H, Estimated Creat Clear 70, Estimated GFR 52 L, Est GFR ( Amer) 62, Glucose 98, Calcium 9.9, Total Bilirubin 1.1, AST 58, ALT 33, Alkaline Phosphatase 73, Troponin I 1.97 H, NT-Pro-B Natriuret Pep 106, Total Protein 7.4, Albumin 4.7, Globulin 2.7, Albumin/Globulin Ratio 1.7, HCV Ab BARBI w/Rflx PCR Qn Reactive, HIV Ag/Ab Combo Qual Negative 08/08/24 18:35: Chlamy pneumoniae PCR Not detected, Adenovirus (PCR) Not detected, B. pertussis DNA (PCR) Not detected, Coronavirus OC43 (PCR) Not detected, Coronavirus HKU1 (PCR) Not detected, Coronavirus 229E (PCR) Not detected, SARS-CoV-2 (PCR) Not detected, Coronavirus NL63 (PCR) Not detected, Human Metapneumovir PCR Not detected, Influenza A (H1) PCR Not detected, Influ A (H1N1/09) PCR Not detected, Influenza A (H3) PCR Not detected, Influenza Type A (PCR) Not detected, Influenza Type B (PCR) Not detected, M. pneumoniae (PCR) Not detected, Parainfluenza 1 (PCR) Not detected, Parainfluenza 2 (PCR) Not detected, Parainfluenza 3 (PCR) Not detected, Parainfluenza 4 (PCR) Not detected, RSV (PCR) Not detected, Entero/Rhino (PCR) Not detected 08/08/24 20:37: WBC 10.6, RBC 5.41, Hgb 15.7, Hct 46.4, MCV 85.8, MCH 29.0, MCHC 33.8, RDW 12.4, Plt Count 254, MPV 9.8, Neut % (Auto) 56.9, Lymph % (Auto) 30.7, [place] % (Auto) 6.6, Eos % (Auto) 4.5, Baso % (Auto) 1.0, Neut # (Auto) 6.0, Lymph # (Auto) 3.3, [place] # (Auto) 0.7, Eos # (Auto) 0.5 H, Baso # (Auto) 0.1, Sodium 134 L, Potassium 4.1, Chloride 106, Carbon Dioxide 22, Anion Gap 10.1, BUN 16, Creatinine 1.40 H, Estimated Creat Clear 70, Estimated GFR 52 L, Est GFR ( Amer) 62, Glucose 119 H D, Calcium 9.6, Troponin I 5.37 H 08/09/24 01:40: APTT 31.1 L 08/09/24 06:13: WBC 10.7, RBC 4.75, Hgb 14.1 D, Hct 40.9 L, MCV 86.1, MCH 29.7, MCHC 34.5, RDW 12.4, Plt Count 240, MPV 10.2, Neut % (Auto) 61.6, Lymph % (Auto) 23.7, [place] % (Auto) 9.3, Eos % (Auto) 4.2, Baso % (Auto) 0.8, Neut # (Auto) 6.6, Lymph # (Auto) 2.5, [place] # (Auto) 1.0, Eos # (Auto) 0.5 H, Baso # (Auto) 0.1, PT 11.1, INR 0.99, Sodium 136, Potassium 4.1, Chloride 106, Carbon Dioxide 27, Anion Gap 7.1, BUN 17, Creatinine 1.50 H, Estimated Creat Clear 64, Estimated GFR 48 L, Est GFR ( Amer) 58 L, Glucose 97, Calcium 9.0, Phosphorus 4.7 H, Magnesium 1.8, Total Bilirubin 0.9, AST 59, ALT 31, Alkaline Phosphatase 66, Troponin I 6.28 H, Total Protein 6.4, Albumin 4.0 D, Globulin 2.4, Albumin/Globulin Ratio 1.7, Triglycerides 279 H, Cholesterol 149, LDL Cholesterol Direct 74.43 L, VLDL Cholesterol 56 H, HDL Cholesterol 25 L, Cholesterol/HDL Ratio 6.0 H I & O for Last 24 hours: Intake & Output 08/06/24 08/07/24 08/08/24 08/09/24 23:59 23:59 23:59 23:59 Intake Total 1.55 / 445.55 615.8 / 615.8 Balance 1.55 / 445.55 615.8 / 615.8 Weight 196 lb 193 lb 1 oz Constitutional Constitutional: no acute distress and cooperative *Routine HEENT Exam Eye: Present PERRL *Routine Respiratory Exam Respiratory: Present CTA bilaterally; Absent accessory muscle use, wheezes or crackles *Routine Cardiovascular Exam Cardiovascular: Present RRR, Normal S1 and Normal S2; Absent murmur, gallop or rubs *Routine Abdominal Exam Abdominal: Present soft; Absent tenderness *Routine Extremities Exam Extremities: Present pulses intact; Absent cyanosis or edema *Routine Skin Exam Skin: Present intact; Absent erythema or wounds *Routine Neurological Exam Neurological: Present alert and oriented X3 Routine Psychiatric Exam Psychiatric: Present cooperative Meds Home Medications and Allergies Home Medications ?Medication ?Instructions ?Recorded ?Confirmed ?Type carvedilol 12.5 mg tablet 12.5 mg PO BID 01/17/24 08/08/24 History hydralazine 50 mg tablet 50 mg PO TID 01/17/24 08/08/24 History isosorbide mononitrate 30 mg 30 mg PO DAILY 01/17/24 08/08/24 History tablet,extended release 24 hr aspirin 81 mg tablet 81 mg PO DAILY 08/08/24 08/08/24 History New Prescriptions to Start Prescriptions: Allergies Allergy/AdvReac Type Severity Reaction Status Date / Time No Known Allergies Allergy Verified 09/10/23 17:08 Assessment and Plan *Assessment and plan (1) NSTEMI (non-ST elevated myocardial infarction): Status: Acute Category: Medical Code(s): I21.4 - Non-ST elevation (NSTEMI) myocardial infarction (2) Hypertensive emergency: Status: Acute Category: Medical Code(s): I16.1 - Hypertensive emergency (3) AUGUSTO (acute kidney injury): Status: Acute Category: Medical Code(s): N17.9 - Acute kidney failure, unspecified Plan NSTEMI - CCS = 3-4 angina with rising serial Trop to max of 6 - LHC - mod dz of obtuse marginal and stopper maker - left to med managemenet for now - DAPT, BB, Statin, OP stresss Hypertensive Emergency - BP >220 with end organ damage (elevated Trop and Cr) - LHC and ECHO consistent with Septal Hypertrophy - pt will need OP Cardiac MRI to eval further - Home Meds: Coreg 12.5 mg twice daily, hydralazine 50 mg 3 times daily, isosorbide 30 mg daily - Here: Carvedilol 12.5 mg twice daily, irbesartan 75 mg daily, diltiazem 180 mg daily *Increased CCB helpful in the setting of septal hypertrophy with outflow tract obstruction but patient heart rate already bradycardic, will have to monitor this over time *Weaned off nitroglycerin drip this am *BP now 160s - Cont to monitor throughout the day, if stable can likely DC AUGUSTO vs CKD-III - Cr 1.4 on arrival in setting of hypertensive emergency, baseline is umknown - dose adjust meds, cont to monitor outpatient *Pt CV stable for DC home with resolution of symptoms, control of bp, and addition DAPT therapy. He needs to keep BID BP log and follow up in our office in 1 week with repeat BMP. We will slowly titrate BP down to 120s and continue management/montoring of abnormal renal function and septal hypertrophy. OP Stress test later. CV DC Meds: Aspirin 81 mg 1 p.o. daily Plavix 75 mg 1 p.o. daily Irbesartan 75 mg 1 p.o. daily Carvedilol 12.5 mg 1 p.o. twice daily Diltiazem 180 mg ER once daily
[2024-08-09] MEDS: CLOPIDOGREL 300MG TABLET 300 MG PO (12:56)
[2024-08-09 14:01] LABS: POC Glucose,Bedside 98 (70-110)
--- NOTE | 2024-08-09 16:11 | PC.NURSE ---
notified of manual BP
--- NOTE | 2024-08-09 16:15 | P.PN_ITS ---
Subjective *Date: 08/09/24 *Time: 17:07 Interval history: Patient denies any chest pain today. Stable on room air. Blood pressure improved with systolics less than 160 this morning while on nitro drip. Increasing through the day however is transition to oral medication. Remains asymptomatic. No nausea or vomiting. Tolerating p.o. intake. Medical Exam Vital signs and Labs for Last 24 Hours: Vital Signs Temp Pulse Pulse Resp BP BP Pulse Ox 08/09/24 16:00 49 L 17 180/100 H 99 08/09/24 14:59 08/09/24 13:00 50 L 18 166/83 H 96 08/09/24 13:00 08/09/24 12:00 50 L 08/09/24 12:00 53 L 16 166/96 H 91 L 08/09/24 11:36 97.8 F 55 L 16 149/83 H 95 08/09/24 11:00 55 L 16 151/88 H 99 08/09/24 11:00 08/09/24 10:00 56 L 16 169/92 H 94 L 08/09/24 09:00 58 L 18 163/76 H 94 L 08/09/24 09:00 08/09/24 08:00 60 08/09/24 08:00 97.9 F 08/09/24 08:00 53 L 98 08/09/24 08:00 54 L 15 151/86 H 96 08/09/24 06:58 08/09/24 05:00 55 L 18 144/72 H 94 L 08/09/24 05:00 08/09/24 04:00 60 08/09/24 04:00 91 L 08/09/24 04:00 97.8 F 59 L 18 138/88 93 L 08/09/24 03:00 08/09/24 03:00 59 L 16 135/69 93 L 08/09/24 02:00 59 L 18 126/67 92 L 08/09/24 01:55 98.0 F 59 L 17 124/67 93 L 08/09/24 01:00 59 L 18 131/62 93 L 08/09/24 01:00 08/09/24 00:30 59 L 16 128/75 92 L 08/09/24 00:25 97.6 F 64 14 136/73 92 L 08/09/24 00:15 64 18 136/73 92 L 08/09/24 00:00 60 08/09/24 00:00 93 L 08/09/24 00:00 97.4 F L 60 18 138/72 93 L 08/09/24 00:00 97.4 F L 60 16 138/72 93 L 08/08/24 23:55 97.4 F L 63 14 137/86 91 L 08/08/24 23:45 98.0 F 63 20 152/90 H 94 L 08/08/24 23:25 98.1 F 62 18 143/86 H 94 L 08/08/24 23:00 08/08/24 22:55 98.0 F 68 18 132/74 95 08/08/24 22:40 98.0 F 64 20 137/86 95 08/08/24 22:25 60 08/08/24 22:25 98.2 F 58 L 20 128/83 96 08/08/24 22:20 96 08/08/24 22:20 60 95 08/08/24 22:20 67 24 137/86 95 08/08/24 21:55 59 L 20 135/92 H 93 L 08/08/24 21:50 54 L 20 174/102 H 93 L 08/08/24 21:45 58 L 20 123/88 93 L 08/08/24 21:40 59 L 20 158/90 H 96 08/08/24 21:40 98.1 F 57 L 59 L 16 158/90 H 99 08/08/24 20:09 97.9 F 64 14 143/100 H 08/08/24 20:05 64 13 143/100 H 96 08/08/24 20:00 65 20 141/101 H 98 08/08/24 19:55 63 18 148/94 H 97 08/08/24 19:50 70 19 148/95 H 97 08/08/24 19:48 61 22 156/95 H 98 08/08/24 19:40 61 15 154/105 H 96 08/08/24 19:36 61 15 153/102 H 97 08/08/24 19:30 58 L 22 156/102 H 95 08/08/24 19:25 60 15 159/112 H 95 08/08/24 19:20 60 14 160/99 H 96 08/08/24 19:16 60 16 181/110 H 97 08/08/24 19:13 58 L 13 170/111 H 97 08/08/24 19:10 54 L 11 L 201/122 H 99 08/08/24 19:05 51 L 16 215/116 H 98 08/08/24 19:00 53 L 13 190/113 H 98 08/08/24 18:31 50 L 15 182/110 H 94 L 08/08/24 17:49 97.6 F 45 L 12 197/118 H 100 O2 Del Method O2 Flow Rate 08/09/24 16:00 Room Air 08/09/24 14:59 Room Air 08/09/24 13:00 Room Air 08/09/24 13:00 Room Air 08/09/24 12:00 08/09/24 12:00 Room Air 08/09/24 11:36 Room Air 08/09/24 11:00 Room Air 08/09/24 11:00 Room Air 08/09/24 10:00 Room Air 08/09/24 09:00 Room Air 08/09/24 09:00 Room Air 08/09/24 08:00 08/09/24 08:00 08/09/24 08:00 Room Air 08/09/24 08:00 Room Air 08/09/24 06:58 Room Air 08/09/24 05:00 Room Air 08/09/24 05:00 Room Air 08/09/24 04:00 08/09/24 04:00 Room Air 08/09/24 04:00 Room Air 08/09/24 03:00 Room Air 08/09/24 03:00 Room Air 08/09/24 02:00 Room Air 08/09/24 01:55 Room Air 08/09/24 01:00 Room Air 08/09/24 01:00 Room Air 08/09/24 00:30 Room Air 08/09/24 00:25 Room Air 08/09/24 00:15 Room Air 08/09/24 00:00 08/09/24 00:00 Room Air 08/09/24 00:00 Room Air 08/09/24 00:00 Room Air 08/08/24 23:55 Room Air 08/08/24 23:45 Room Air 08/08/24 23:25 Room Air 08/08/24 23:00 Room Air 08/08/24 22:55 Room Air 08/08/24 22:40 Room Air 08/08/24 22:25 08/08/24 22:25 Room Air 08/08/24 22:20 Room Air 08/08/24 22:20 Room Air 08/08/24 22:20 Room Air 08/08/24 21:55 Room Air 08/08/24 21:50 Room Air 08/08/24 21:45 Room Air 08/08/24 21:40 Room Air 08/08/24 21:40 Room Air 08/08/24 20:09 Room Air 08/08/24 20:05 08/08/24 20:00 08/08/24 19:55 08/08/24 19:50 08/08/24 19:48 08/08/24 19:40 08/08/24 19:36 08/08/24 19:30 08/08/24 19:25 08/08/24 19:20 08/08/24 19:16 08/08/24 19:13 08/08/24 19:10 08/08/24 19:05 08/08/24 19:00 08/08/24 18:31 08/08/24 17:49 Intake and Output 08/09/24 08/09/24 08/09/24 07:59 15:59 23:59 Intake Total 615.8 / 1166.15 550.35 / 1166.15 Output Total 700 / 700 Balance 615.8 / 466.15 -149.65 / 466.15 Intake: Intake, Oral Amount 444 / 924 480 / 924 Intake, Total IV Amount 171.8 / 242.15 70.35 / 242.15 Output: Output, Urine Amount 700 / 700 Other: Number of Voids 1 Number of Unmeasured Voids 1 Weight 87.572 kg Patient Weight 08/09/24 23:59 Weight 87.572 kg Laboratory Results - last 24 hr 08/08/24 17:45: WBC 9.1, RBC 5.53, Hgb 16.2, Hct 48.1, MCV 87.0, MCH 29.3, MCHC 33.7, RDW 12.5, Plt Count 262, MPV 10.0, Neut % (Auto) 51.4, Lymph % (Auto) 34.5, [place] % (Auto) 8.7, Eos % (Auto) 4.3, Baso % (Auto) 1.0, Neut # (Auto) 4.7, Lymph # (Auto) 3.2, [place] # (Auto) 0.8, Eos # (Auto) 0.4, Baso # (Auto) 0.1, APTT 33.0 L, D-Dimer 0.54 H, Sodium 138, Potassium 4.1, Chloride 103, Carbon Dioxide 29, Anion Gap 10.1, BUN 17, Creatinine 1.40 H, Estimated Creat Clear 70, Estimated GFR 52 L, Est GFR ( Amer) 62, Glucose 98, Calcium 9.9, Total Bilirubin 1.1, AST 58, ALT 33, Alkaline Phosphatase 73, Troponin I 1.97 H, NT-Pro-B Natriuret Pep 106, Total Protein 7.4, Albumin 4.7, Globulin 2.7, Albumin/Globulin Ratio 1.7, HCV Ab BARBI w/Rflx PCR Qn Reactive, HIV Ag/Ab Combo Qual Negative 08/08/24 18:35: Chlamy pneumoniae PCR Not detected, Adenovirus (PCR) Not detected, B. pertussis DNA (PCR) Not detected, Coronavirus OC43 (PCR) Not detected, Coronavirus HKU1 (PCR) Not detected, Coronavirus 229E (PCR) Not detected, SARS-CoV-2 (PCR) Not detected, Coronavirus NL63 (PCR) Not detected, Human Metapneumovir PCR Not detected, Influenza A (H1) PCR Not detected, Influ A (H1N1/09) PCR Not detected, Influenza A (H3) PCR Not detected, Influenza Type A (PCR) Not detected, Influenza Type B (PCR) Not detected, M. pneumoniae (PCR) Not detected, Parainfluenza 1 (PCR) Not detected, Parainfluenza 2 (PCR) Not detected, Parainfluenza 3 (PCR) Not detected, Parainfluenza 4 (PCR) Not detected, RSV (PCR) Not detected, Entero/Rhino (PCR) Not detected 08/08/24 20:37: WBC 10.6, RBC 5.41, Hgb 15.7, Hct 46.4, MCV 85.8, MCH 29.0, MCHC 33.8, RDW 12.4, Plt Count 254, MPV 9.8, Neut % (Auto) 56.9, Lymph % (Auto) 30.7, [place] % (Auto) 6.6, Eos % (Auto) 4.5, Baso % (Auto) 1.0, Neut # (Auto) 6.0, Lymph # (Auto) 3.3, [place] # (Auto) 0.7, Eos # (Auto) 0.5 H, Baso # (Auto) 0.1, Sodium 134 L, Potassium 4.1, Chloride 106, Carbon Dioxide 22, Anion Gap 10.1, BUN 16, Creatinine 1.40 H, Estimated Creat Clear 70, Estimated GFR 52 L, Est GFR ( Amer) 62, Glucose 119 H D, Calcium 9.6, Troponin I 5.37 H 08/09/24 01:40: APTT 31.1 L 08/09/24 06:12: POC Glucose 98 08/09/24 06:13: WBC 10.7, RBC 4.75, Hgb 14.1 D, Hct 40.9 L, MCV 86.1, MCH 29.7, MCHC 34.5, RDW 12.4, Plt Count 240, MPV 10.2, Neut % (Auto) 61.6, Lymph % (Auto) 23.7, [place] % (Auto) 9.3, Eos % (Auto) 4.2, Baso % (Auto) 0.8, Neut # (Auto) 6.6, Lymph # (Auto) 2.5, [place] # (Auto) 1.0, Eos # (Auto) 0.5 H, Baso # (Auto) 0.1, PT 11.1, INR 0.99, Sodium 136, Potassium 4.1, Chloride 106, Carbon Dioxide 27, Anion Gap 7.1, BUN 17, Creatinine 1.50 H, Estimated Creat Clear 64, Estimated GFR 48 L, Est GFR ( Amer) 58 L, Glucose 97, Calcium 9.0, Phosphorus 4.7 H , Magnesium 1.8, Total Bilirubin 0.9, AST 59, ALT 31, Alkaline Phosphatase 66, Troponin I 6.28 H, Total Protein 6.4, Albumin 4.0 D, Globulin 2.4, Albumin/Globulin Ratio 1.7, Triglycerides 279 H, Cholesterol 149, LDL Cholesterol Direct 74.43 L, VLDL Cholesterol 56 H, HDL Cholesterol 25 L, Cholesterol/HDL Ratio 6.0 H I & O for Labs for Last 24 Hours: Intake & Output 08/06/24 08/07/24 08/08/24 08/09/24 23:59 23:59 23:59 23:59 Intake Total 1.55 / 445.55 1166.15 / 1166.15 Output Total 700 / 700 Balance 1.55 / 445.55 466.15 / 466.15 Weight 88.904 kg 87.572 kg Constitutional: Present no acute distress Respiratory: Present normal respiratory effort Cardiac: Present Reg Rate and Rhythm GI: Present normal bowel sounds; Absent tenderness Extremities: Present normal inspection and full ROM Skin: Present intact; Absent erythema Neuro: Present Grossly Intact and moves all extremities Assessment and Plan *Assessment and plan (1) ACS (acute coronary syndrome): Status: Acute Category: Medical Code(s): I24.9 - Acute ischemic heart disease, unspecified (2) NSTEMI (non-ST elevated myocardial infarction): Status: Acute Category: Medical Code(s): I21.4 - Non-ST elevation (NSTEMI) myocardial infarction (3) Hypertensive emergency: Status: Acute Category: Medical Code(s): I16.1 - Hypertensive emergency (4) AUGUSTO (acute kidney injury): Status: Acute Category: Medical Code(s): N17.9 - Acute kidney failure, unspecified (5) HLD (hyperlipidemia): Status: Acute Category: Medical Code(s): E78.5 - Hyperlipidemia, unspecified (6) Tobacco abuse: Status: Acute Category: Medical Code(s): Z72.0 - Tobacco use Plan 59-year-old male multiple cardiovascular risk factors presenting with hypertensive emergency and typical angina, found to have AUGUSTO and NSTEMI. EKG with dynamic inferolateral ST changes. Symptoms largely resolved with blood pressure control including nitroglycerin drip. Patient is also on ACS heparin and received aspirin. At this time will admit to ICU, however if this chest pain recurs will send for urgent left heart catheterization. Has shown improvement overnight. Weaned off drip. De-escalate to MedSurg with telemetry. Continue to monitor overnight. 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 Medical management for now. No stents deployed. - Continue carvedilol 12.5 mg twice daily, irbesartan 75 mg this morning, increase to 150 mg daily. Continue aspirin 81 mg daily and Plavix 75 mg daily - Discussed case with cardiology today, continue to address oral regimen and wean off drip today. - Formal echo obtained, no left ventricular outflow tract obstruction. EF preserved. -Continue to monitor on telemetry -Initiate amlodipine 5 mg for the morning - Goal blood pressure less than 160 before discharge home - Heart rate in the 50s, will hold on diltiazem - Nifedipine 10 mg once tonight AUGUSTO vs CKD-III - Cr 1.4 on arrival, 1.5 this morning, BUN 17. Appears to be baseline. -Potassium 4.1, magnesium 1.8. Repeat CBC, CMP, magnesium ordered for the morning. Hyperlipidemia - Atorvastatin 80 mg - LDL 74 Aortic iliac calcific plaque manage - risk factor modification for secondary prevention - EZE in near future, can be perfomed outpatient on folow up Nicotine patch as needed for tobacco Full code Heparinized in Draw Frame Tender Cardiac diet
[2024-08-09] MEDS: NIFEdipine 10MG CAPSULE 10 MG PO (16:24)
--- NOTE | 2024-08-09 19:53 | CA_ITS ---
APPROVED REPORT EXAM: Comprehensive 2D, Doppler, and color-flow Echocardiogram Ash Kier Boiler: Lavern Holcomb CRT Ht: 5 ft 7 in Wt: 196lbs BSA: 2.00 BP: 160/99 mmHg Indications: Chest Pain, Shortness of Breath, NSTEMI, Hyperlipidemia, Hypertension/HDD, ? LVOT obstruction per cath, cath 08/08/24 med management 2D Dimensions LA Volume 32.50 mL LA Volume Index 15.90 mL/m2 (M/F) 16-34 M-Mode Dimensions RVDd 2.94 cm (0.9-2.6) LA Diam 3.82 cm (1.9-4.0) LVDd 3.75 cm (3.5-5.7) LVDs 2.41 cm (3.5-5.7) IVSd 1.84 cm (0.6-1.1) PWd 0.84 cm (0.6-1.1) EF (Teich) 66.00% FS 35.70% EDV (Teich) 60.00 mL TAPSE 2.26 (<1.7) ESV (Teich) 20.40 mL LV Diastology E Decel Time 263 (160-240 msec) E/A Ratio 0.73 MED A' 10.50 cm/s LAT A' 11.30 cm/s Aortic Valve AO Peak GR. 9.90 mmHg Mitral Valve MV E Max Hank. 69.0 (40-130 cm/s) MV A Velocity 95.0 (40-130 cm/s) E/A Ratio 0.73 MV PHT 77.0 ms Pulmonary Valve PV Peak Velocity 180.0 (50-150 cm/s) Tricuspid Valve TR P. Velocity 251.00 cm/s RAP Estimate 10.00 mmHg RVSP 35.20 mmHg Left Ventricle The left ventricle is normal size. The left ventricular systolic function is normal. The left ventricular ejection fraction is within the normal range. There is marked increase in LV wall thickness. IVSD is 1.5 cm. No evidence of LVOT obstruction at rest. There is normal LV segmental wall motion. Transmitral Doppler flow pattern suggests impaired LV relaxation. LVEF is 60%. Right Ventricle The right ventricle is normal size. The right ventricular systolic function is normal. Atria The left atrium size is normal. The right atrium size is normal. There is no Doppler evidence of interatrial shunt. Aortic Valve The aortic valve is mildly thickened. There is no aortic valvular stenosis. Trace aortic regurgitation is present. Mitral Valve The mitral valve is normal in structure. No evidence of systolic anterior motion. No evidence of mitral valve stenosis. Mild mitral regurgitation. Tricuspid Valve Tricuspid valve is grossly normal in structure and function. Trace tricuspid regurgitation. There is insufficient TR jet to estimate RVSP. Pulmonic Valve The pulmonary valve is normal in structure. Mild pulmonic regurgitation. Great Vessels The aortic root is normal in size. IVC is normal in size and collapses >50% with inspiration. Pericardium There is no pericardial effusion. Other Information Study Quality: Fair Conclusion Normal biventricular systolic function. Mild increase in LV wall thickness. IVSD is 1.5 cm. No evidence of SWATHI. No LVOT obstruction at rest. Mild MR, mild PI. In the setting of marked increased LV wall thickness, further evaluation with cardiac MRI (HCM protocol) is suggested. Electronically signed by : Leticia Ac MD 08/09/2024 12:31:32
[2024-08-09] MEDS: PANTOPRAZOLE 40MG TABLET 40 MG PO (20:35)
[2024-08-09] MEDS: ATORVASTATIN 40MG TABLET 80 MG PO (20:35)
[2024-08-10] VITALS (14 sets, daily range): BP systolic 155–205; BP diastolic 90–119; PULSE 50–80; RESP 16–20; TEMP 36.6–37.1; O2SAT 95–100; BMI 29.8
--- NOTE | 2024-08-10 05:37 | PC.NURSE ---
Pt A&OX4 and has tolerated room air. Lung sounds clear and bowel sounds active. Dressing over right radial cath site is c/d/i. He has remained sinus susan on tele. He has ambulated room independently. No complaints at this time, call light within reach.
[2024-08-10 06:19] LABS: Basophils # 0.1 K/mm3 (0-0.2); Basophils % 1.1 % (0.1-2.0); Chloride 106 mmol/L (98-107); Eosinophils # 0.4 Kmm3 (0.0-0.4); Eosinophils % 4.9 % (0.1-12.0); Hematocrit 43.2 % (42.0-52.0); Hemoglobin 14.8 g/dL (14.1-18.0); Immature Granulocytes # 0.02 10^3uL; Immature Granulocytes % 0.2 %; Lymphocytes # 2.7 K/mm3 (0.7-4.5); Lymphocytes % 31.6 % (10-50); Mean Corpuscular HGB Conc 34.3 g/dL (31.8-35.4); Mean Corpuscular Hemoglobin 29.2 pg (27.0-31.2); Mean Corpuscular Volume 85.2 fl (80-94); Monocytes # 0.8 K/mm3 (0.1-1.0); Monocytes % 9.6 % (1.7-9.3); Neutrophils # 4.5 K/mm3 (1.8-7.8); Neutrophils % 52.6 % (37.0-80.0); Nucleated Red Blood Cells # 0 10^3/uL; Nucleated Red Blood Cells % 0 %; Platelet Count 239 K/mm3 (142-424); Potassium 3.9 mmoL/L (3.5-5.1); Red Blood Count 5.07 M/mm3 (4.60-6.20); Red Cell Distribution Width 12.4 % (11.5-17.5); Red Cell Distribution Width-SD 38.3 fL; Sodium 137 mmol/L (136-145); White Blood Count 8.5 K/mm3 (4.8-10.8)
[2024-08-10 06:22] LABS: Alanine Aminotransferase 28 U/L (12-78); Albumin/Globulin Ratio 1.5 (1.1-1.8); Alkaline Phosphatase 75 U/L (38-126); Anion Gap 8.9 mEq/L (5-15); Aspartate Amino Transferase 50 U/L (17-59); Bilirubin,Total 0.9 mg/dl (0.2-1.3); Blood Urea Nitrogen 15 mg/dl (9-20); Carbon Dioxide 26 mmol/L (22.0-30.0); Creatinine Clearance Estimated 63 mL/min (50-200); Estimated Glomerular Filt Rate 48 ml/min (>60); GFR (African American) 58 ML/MIN (>60); Globulin 2.6 g/dL (1.3-3.2); Total Protein,Serum 6.6 g/dl (6.3-8.2)
[2024-08-10 06:23] LABS: Calcium 9.2 mg/dl (8.4-10.2); Glucose 97 mg/dl (74-100); Magnesium 1.7 mg/dl (1.6-2.3)
[2024-08-10] MEDS: ASPIRIN EC 81MG TABLET 81 MG PO (08:34)
[2024-08-10] MEDS: CARVEDILOL 12.5MG TABLET 12.5 MG PO ×2 (08:34→20:12)
[2024-08-10] MEDS: DOCUSATE SODIUM 100 MG CAPSULE PO ×2 (08:37→20:12)
[2024-08-10] MEDS: CLOPIDOGREL 75MG TAB 75 MG PO (08:37)
[2024-08-10] MEDS: IRBESARTAN 150MG TAB 150 MG PO ×2 (08:38→11:26)
[2024-08-10] MEDS: ISOSORBIDE MONO 30MG TAB.ER.24H 30 MG PO (08:38)
[2024-08-10] MEDS: NIFEdipine XL 30MG TABLET 30 MG PO (08:39)
--- NOTE | 2024-08-10 10:43 | P.PN_ITS ---
Subjective Subjective Date: 08/10/24 Time: 09:30 Interval history: No further chest pain but blood pressure remains significantly elevated greater than 200 this morning on last check. Cardizem was changed to nifedipine by hospitalist due to heart rate in the 50s. Renal function back to baseline. Exam Data for Last 24 hours Vital signs and Labs for Last 24 Hours: Temp Pulse Resp BP Pulse Ox O2 Del Method O2 Flow Rate 97.9 F 52 L 20 195/95 H 100 Room Air 94 08/10/24 08:00 08/10/24 08:00 08/10/24 08:00 08/10/24 08:00 08/10/24 08:00 08/10/24 09:00 08/09/24 03:00 Laboratory Results - last 24 hr 08/09/24 06:12: POC Glucose 98 08/10/24 05:39: WBC 8.5, RBC 5.07, Hgb 14.8, Hct 43.2, MCV 85.2, MCH 29.2, MCHC 34.3, RDW 12.4, Plt Count 239, MPV 10.0, Neut % (Auto) 52.6, Lymph % (Auto) 31.6, [place] % (Auto) 9.6 H, Eos % (Auto) 4.9, Baso % (Auto) 1.1, Neut # (Auto) 4.5, Lymph # (Auto) 2.7, [place] # (Auto) 0.8, Eos # (Auto) 0.4, Baso # (Auto) 0.1, Sodium 137, Potassium 3.9, Chloride 106, Carbon Dioxide 26, Anion Gap 8.9, BUN 15, Creatinine 1.50 H, Estimated Creat Clear 63, Estimated GFR 48 L, Est GFR ( Amer) 58 L, Glucose 97, Calcium 9.2, Magnesium 1.7, Total Bilirubin 0.9, AST 50, ALT 28, Alkaline Phosphatase 75, Total Protein 6.6, Albumin 4.0, Globulin 2.6, Albumin/Globulin Ratio 1.5 I & O for Last 24 hours: Intake & Output 08/07/24 08/08/24 08/09/24 08/10/24 23:59 23:59 23:59 23:59 Intake Total 1.55 / 445.55 1436.15 / 1436.15 Output Total 700 / 700 Balance 1.55 / 445.55 736.15 / 736.15 Weight 196 lb 193 lb 1 oz 190 lb 3 oz Constitutional Constitutional: no acute distress and cooperative *Routine HEENT Exam Eye: Present PERRL *Routine Respiratory Exam Respiratory: Present CTA bilaterally; Absent accessory muscle use, wheezes or crackles *Routine Cardiovascular Exam Cardiovascular: Present RRR, Normal S1 and Normal S2; Absent murmur, gallop or rubs *Routine Abdominal Exam Abdominal: Present soft; Absent tenderness *Routine Extremities Exam Extremities: Present pulses intact; Absent cyanosis or edema *Routine Skin Exam Skin: Present intact; Absent erythema or wounds *Routine Neurological Exam Neurological: Present alert and oriented X3 Routine Psychiatric Exam Psychiatric: Present cooperative Progress Note: A&P Assessment and plan (1) ACS (acute coronary syndrome): Status: Acute (2) NSTEMI (non-ST elevated myocardial infarction): Status: Acute (3) Hypertensive emergency: Status: Acute (4) AUGUSTO (acute kidney injury): Status: Acute (5) HLD (hyperlipidemia): Status: Acute (6) Tobacco abuse: Status: Acute Assessment and Plan Assessment and Plan for All Diagnoses:: 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 - new dx this admission - On arrival had CCS = 3-4 angina with rising serial Trop to max of 6 - [facility] - 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 - left to med managemenet for now - DAPT, BB, Statin, outpatient stress test 08/10: No further angina Hypertensive Emergency - BP >220 with end organ damage (elevated Trop and Cr) - [facility] and ECHO consistent with Septal Hypertrophy - pt will need OP Cardiac MRI to eval further - Normal Renal Arteries per [facility] 08/08/24 - Home Meds: Coreg 12.5 mg twice daily, hydralazine 50 mg 3 times daily, isosorbide 30 mg daily - Here: Carvedilol 12.5 mg twice daily, irbesartan 75 mg daily, diltiazem 180 mg daily - Increased CCB helpful in the setting of septal hypertrophy with outflow tract obstruction but patient heart rate already bradycardic, will have to monitor this over time - Weaned off nitroglycerin drip this am - BP now 160s - Cont to monitor throughout the day, if stable can likely DC 08/10: Hospitalist adjusting BP meds. Up to 212 this morning. Some component of anxiety/white coat also considered. Pt states on day of arrival he had checked BP and was 120s at home. Will place orders for secondary hypertension workup. AUGUSTO vs CKD-III - Cr 1.4 on arrival in setting of hypertensive emergency, baseline is unknown - dose adjust meds, cont to monitor outpatient 08/10: stable/unchanged at 1.5 08/10: BP still uncontrolled but no further CP and Cr unchanged. Pt anxious to leave. Hospitalist, RN, and I all spoke with him about trying to get goal BP at least less than 180s consistently before discharge. Risk of CVA and another DE if uncontrolled.
--- NOTE | 2024-08-10 11:13 | US_ITS ---
FINAL REPORT CLINICAL HISTORY: accelerated htn COMPARISON: None FINDINGS: RENAL ULTRASOUND Ultrasound images of the kidneys were obtained. Limited images of the liver parenchyma demonstrates normal echogenicity. The right kidney measures 10.4 cm in length. It is normal echogenicity. There is no hydronephrosis. The left kidney measures 10.0 cm in length. Echogenic, mildly shadowing focus in the lower pole left kidney may represent a small nonobstructing stone. There is no hydronephrosis. IMPRESSION: Small nonobstructing left renal stone. Reviewed, Interpreted and Dictated by Enrique Jenkins MD Transcribed by Madhuri Kingsley Authenticated and [facility]
[2024-08-10 12:49] LABS: Thyroid Stimulating Hormone 2.44 uIU/mL (0.465-4.68)
[2024-08-10 12:56] LABS: Free T4 (Free Thyroxine) 1.08 ng/dl (0.78-2.19)
--- NOTE | 2024-08-10 15:22 | PC.NURSE ---
Pt has been ambulating in the hallway t/o the day. Has tolerated it well. Has c/o some discomfort to inner thigh or LLE after multiple laps around the floor with nonskid socks. Pt has since put shoes on while ambulating. BP continues to be elevated in both arms. Multiple cuffs have been used. Pt 's legs observed and not crossed. no talking while obtaining. Medication administered per may. Family is at bedside. Call light within reach.
--- NOTE | 2024-08-10 17:17 | EXP.ACUTE.PN ---
Subjective *Date: 08/10/24 *Time: 18:25 Interval history: Denies chest pain or shortness of breath. Ambulating independently. Blood pressure remains elevated. Alert and oriented x 4 Medical Exam Vital signs and Labs for Last 24 Hours: Vital Signs Temp Pulse Pulse Resp BP Pulse Ox O2 Del Method 08/10/24 16:41 Room Air 08/10/24 16:00 60 08/10/24 15:00 190/119 H 08/10/24 14:48 Room Air 08/10/24 13:44 177/98 H 08/10/24 13:00 Room Air 08/10/24 12:00 98.7 F 53 L 18 198/98 H 98 Room Air 08/10/24 12:00 60 08/10/24 11:00 Room Air 08/10/24 10:45 183/106 H 08/10/24 09:00 Room Air 08/10/24 08:00 Room Air 08/10/24 08:00 50 L 08/10/24 08:00 97.9 F 52 L 20 195/95 H 100 Room Air 08/10/24 06:36 Room Air 08/10/24 05:00 Room Air 08/10/24 04:00 50 L 08/10/24 04:00 98.0 F 51 L 18 174/90 H 96 Room Air 08/10/24 03:00 Room Air 08/10/24 01:00 Room Air 08/10/24 00:00 50 L 08/09/24 23:55 98.0 F 55 L 16 174/87 H 95 Room Air 08/09/24 23:00 Room Air 08/09/24 21:00 Room Air 08/09/24 20:00 Room Air 08/09/24 20:00 50 L 08/09/24 19:40 97.6 F 56 L 18 180/84 H 98 Room Air 08/09/24 18:51 Room Air Intake and Output 08/10/24 08/10/24 08/10/24 07:59 15:59 23:59 Intake Total 1000 / 1000 Output Total 0 / 0 Balance 1000 / 1000 Intake: Intake, Oral Amount 1000 / 1000 Output: Output, Urine Amount 0 / 0 Other: Number of Unmeasured Voids 1 1 Number of Bowel Movements 1 Weight 86.268 kg Patient Weight 08/10/24 23:59 Weight 86.268 kg Laboratory Results - last 24 hr 08/10/24 05:39: WBC 8.5, RBC 5.07, Hgb 14.8, Hct 43.2, MCV 85.2, MCH 29.2, MCHC 34.3, RDW 12.4, Plt Count 239, MPV 10.0, Neut % (Auto) 52.6, Lymph % (Auto) 31.6, [place] % (Auto) 9.6 H, Eos % (Auto) 4.9, Baso % (Auto) 1.1, Neut # (Auto) 4.5, Lymph # (Auto) 2.7, [place] # (Auto) 0.8, Eos # (Auto) 0.4, Baso # (Auto) 0.1, Sodium 137, Potassium 3.9, Chloride 106, Carbon Dioxide 26, Anion Gap 8.9, BUN 15, Creatinine 1.50 H, Estimated Creat Clear 63, Estimated GFR 48 L, Est GFR ( Amer) 58 L, Glucose 97, Calcium 9.2, Magnesium 1.7, Total Bilirubin 0.9, AST 50, ALT 28, Alkaline Phosphatase 75, Total Protein 6.6, Albumin 4.0, Globulin 2.6, Albumin/Globulin Ratio 1.5 08/10/24 11:57: TSH 2.44, Free T4 1.08 I & O for Labs for Last 24 Hours: Intake & Output 08/07/24 08/08/24 08/09/24 08/10/24 23:59 23:59 23:59 23:59 Intake Total 1.55 / 445.55 1436.15 / 1436.15 1000 / 1000 Output Total 700 / 700 0 / 0 Balance 1.55 / 445.55 736.15 / 736.15 1000 / 1000 Weight 88.904 kg 87.572 kg 86.268 kg Constitutional: Present no acute distress Respiratory: Present normal respiratory effort Cardiac: Present Reg Rate and Rhythm GI: Present normal bowel sounds; Absent tenderness Extremities: Present normal inspection and full ROM Skin: Present intact; Absent erythema Neuro: Present Grossly Intact and moves all extremities Assessment and Plan *Assessment and plan (1) ACS (acute coronary syndrome): Status: Acute Category: Medical Code(s): I24.9 - Acute ischemic heart disease, unspecified (2) NSTEMI (non-ST elevated myocardial infarction): Status: Acute Category: Medical Code(s): I21.4 - Non-ST elevation (NSTEMI) myocardial infarction (3) Hypertensive emergency: Status: Acute Category: Medical Code(s): I16.1 - Hypertensive emergency (4) AUGUSTO (acute kidney injury): Status: Acute Category: Medical Code(s): N17.9 - Acute kidney failure, unspecified (5) HLD (hyperlipidemia): Status: Acute Category: Medical Code(s): E78.5 - Hyperlipidemia, unspecified (6) Tobacco abuse: Status: Acute Category: Medical Code(s): Z72.0 - Tobacco use Plan 59-year-old male multiple cardiovascular risk factors presenting with hypertensive emergency and typical angina, found to have AUG[place]O and NSTEMI. EKG with dynamic inferolateral ST changes. Symptoms largely resolved with blood pressure control including nitroglycerin drip. Patient is also on ACS heparin and received aspirin. At this time will admit to ICU, however if this chest pain recurs will send for urgent left heart catheterization. Blood pressure remains elevated. Increasing oral regimen. Continues to require patient management. 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 Medical management for now. No stents deployed. - Continue carvedilol 12.5 mg twice daily, increase irbesartan to 300 mg daily. Continue aspirin 81 mg daily and Plavix 75 mg daily - Initiate nifedipine, received 30 mg extended release this morning. Continues to be hypertensive, will administer an additional 20 mg this evening. Consider increasing to 60 mg tomorrow - Discussed case with cardiology today, continue to address oral regimen - Formal echo obtained, no left ventricular outflow tract obstruction. EF preserved. -Continue to monitor on telemetry - Goal blood pressure less than 160 before discharge home - Heart rate in the 50s, will hold on diltiazem [place] vs CKD-III - BUN 15, creatinine 1.5. Appears stable. Potassium 3.9, magnesium 1.7. Repeat CBC, CMP, magnesium ordered for the morning. Hyperlipidemia - Atorvastatin 80 mg; LDL 74 Aortic iliac calcific plaque manage - risk factor modification for secondary prevention - EZE in near future, can be perfomed outpatient on folow up Nicotine patch as needed for tobacco Full code Cardiac diet
[2024-08-10] MEDS: HYDROCODONE/APAP 5/325 MG TABLET 1 TAB PO (18:00)
[2024-08-10] MEDS: NIFEdipine 10MG CAPSULE 20 MG PO (18:11)
[2024-08-10] MEDS: PANTOPRAZOLE 40MG TABLET 40 MG PO (20:12)
[2024-08-10] MEDS: ATORVASTATIN 40MG TABLET 80 MG PO (20:12)
[2024-08-10] MEDS: LIDOCAINE 5% TRANSDERMAL PATCH 1 EACH TD (21:25)
--- NOTE | 2024-08-10 22:15 | PC.NURSE ---
Addendum entered by Ya Rousseau RN 08/11/24 04:57: This morning, the patient's blood pressure spiked back up to 195/88. Another dose of intravenous hydralazine will be administered per MAY for SBP > 170. Follow-up blood pressure readings will be taken/documented accordingly (see vital sign assessments). Addendum entered by Ya Rousseau RN 08/11/24 02:06: Blood pressures appeared to have trended down post-hydralazine administration, taken from 00:30 to 01:45 in 15 minute intervals (see vital sign assessments). Most recent blood pressure reading (for 01:45) was 153/68. Addendum entered by Ya Rousseau RN 08/11/24 00:53: Intravenous hydralazine was administered at 00:30 per MAY. Initial blood pressure readings (taken immediately prior to the hydralazine administration) were 191/72 and 190/82; heart rate was 63 for both assessments. Follow-up blood pressure readings will be taken/documented accordingly (see vital sign assessments). Addendum entered by Ya Rousseau RN 08/10/24 22:57: Jack JONES was notified at this time about the patient's hypertensive blood pressures. Pending new orders. Original Note: At this time, I attempted to page Jack JONES to notify her about the patient's ongoing hypertensive blood pressures (see vital sign assessments for other documentations); no answer, phone was forwarded to [facility]. Blood pressure reading taken at 22:15 was 201/101 at a sitting position. Another attempt will be made accordingly.
[2024-08-11] VITALS (18 sets, daily range): BP systolic 152–196; BP diastolic 68–100; PULSE 50–67; RESP 16–18; TEMP 36.6–36.9; O2SAT 96–98; BMI 30.4
[2024-08-11] MEDS: HYDROCODONE/APAP 5/325 MG TABLET 1 TAB PO (00:30)
[2024-08-11] MEDS: HYDRALAZINE 20MG/ML VIAL 10 MG IV ×2 (00:30→05:00)
--- NOTE | 2024-08-11 06:32 | PC.NURSE ---
Echo is at bedside at this time.
[2024-08-11 06:46] LABS: Basophils # 0.1 K/mm3 (0-0.2); Eosinophils # 0.5 Kmm3 (0.0-0.4); Eosinophils % 4.3 % (0.1-12.0); Hematocrit 45.8 % (42.0-52.0); Hemoglobin 15.6 g/dL (14.1-18.0); Immature Granulocytes # 0.03 10^3uL; Immature Granulocytes % 0.3 %; Lymphocytes # 3.5 K/mm3 (0.7-4.5); Lymphocytes % 29.5 % (10-50); Mean Corpuscular HGB Conc 34.1 g/dL (31.8-35.4); Mean Corpuscular Hemoglobin 29.2 pg (27.0-31.2); Mean Corpuscular Volume 85.6 fl (80-94); Mean Platelet Volume 9.9 fl (7.4-10.4); Monocytes # 1.1 K/mm3 (0.1-1.0); Monocytes % 9.1 % (1.7-9.3); Neutrophils # 6.6 K/mm3 (1.8-7.8); Neutrophils % 55.8 % (37.0-80.0); Nucleated Red Blood Cells # 0 10^3/uL; Nucleated Red Blood Cells % 0 %; Platelet Count 279 K/mm3 (142-424); Red Blood Count 5.35 M/mm3 (4.60-6.20); Red Cell Distribution Width 12.6 % (11.5-17.5); Red Cell Distribution Width-SD 38.5 fL; White Blood Count 11.9 K/mm3 (4.8-10.8)
[2024-08-11 07:01] LABS: Alanine Aminotransferase 26 U/L (12-78); Albumin Level 4.7 g/dl (3.5-5.0); Albumin/Globulin Ratio 1.8 (1.1-1.8); Alkaline Phosphatase 83 U/L (38-126); Anion Gap 13.6 mEq/L (5-15); Aspartate Amino Transferase 46 U/L (17-59); Bilirubin,Total 1.2 mg/dl (0.2-1.3); Blood Urea Nitrogen 14 mg/dl (9-20); Calcium 9.4 mg/dl (8.4-10.2); Carbon Dioxide 24 mmol/L (22.0-30.0); Chloride 105 mmol/L (98-107); Creatinine Clearance Estimated 69 mL/min (50-200); Estimated Glomerular Filt Rate 52 ml/min (>60); GFR (African American) 62 ML/MIN (>60); Globulin 2.6 g/dL (1.3-3.2); Glucose 106 mg/dl (74-100); Potassium 3.6 mmoL/L (3.5-5.1); Sodium 139 mmol/L (136-145); Total Protein,Serum 7.3 g/dl (6.3-8.2)
--- NOTE | 2024-08-11 07:34 | P.DS_ITS ---
General Admission date:: 08/08/24 Discharge date: 08/11/24 HPI HPI HPI: 59-year-old male presents to the ER with typical angina 3 days duration. States he was moving heavy object at home when he started developing substernal, crushing, heavy chest pain with radiation to the left side. Mild dyspnea associated. Thought he pulled his chest at that time and tried to rest however the pain continued to progress over the course of 3 days. He is brought to the emergency department by his . Upon arrival, hypertensive systolics 220 mmHg, EKG normal sinus rhythm with ST deviations in the inferolateral leads, likely repol abnormality. Patient was started on nitroglycerin drip with improvement blood pressure to systolics of 160s-180 mmHg. Given aspirin, morphine and started on heparin drip with mild improvement of his chest pain however still endorses some atypical stabbing left-sided symptoms. Repeat EKG with dynamic changes including inferior nonspecific T wave inversions. Chest x-ray with mild pulmonary vascular congestion bilaterally. Cardiac silhouette normal. Otherwise no acute findings. Discussed the case with ER physician and interventional cardiology. I independently reviewed and interpretted CXR, lab findings and EKG. history obtained by myself. reviewed prior documentation from prior physician evaluations. Hospital Course Hospital Course Hospital Course: 59-year-old male multiple cardiovascular risk factors presenting with hypertensive emergency and typical angina, found to have AUGUSTO and NSTEMI. EKG with dynamic inferolateral ST changes. Symptoms largely resolved with blood pressure control including nitroglycerin drip. Patient is also on ACS heparin and received aspirin. Patient initially admitted to ICU. Showed improvement in symptoms. Taken for urgent heart cath, no flow-limiting lesions identified. Blood pressure gradually improved with significant adjustment in regimen. Stable to discharge home with close outpatient follow-up. Problems addressed as follows: Hypertensive urgency NSTEMI - Taken for cath overnight of admission. 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 Medical management for now. No stents deployed. Significant adjustment to blood pressure regimen. Continued home carvedilol 12.5 mg twice daily, increase irbesartan to 300 mg daily. Continue aspirin 81 mg daily and Plavix 75 mg daily . Initiate nifedipine, received 30 mg extended release that was gradually increased to 60 mg daily. Cardiology was consulted to assist with care. Recommend continue to adjust meds for goal blood pressure. Formal echo obtained with no ventricular outflow tract obstruction. EF normal. Monitored on telemetry. Overall did well. Blood pressure improved on day of discharge with systolics in the 150s to 160s. Patient asymptomatic. Will proceed with further adjustment as an outpatient for goal less than 140 systolic. this morning. Continues to be hypertensive, will administer an additional 20 mg this evening. Consider increasing to 60 mg tomorrow - Discussed case with cardiology today, continue to address oral regimen - Formal echo obtained, no left ventricular outflow tract obstruction. EF preserved. -Continue to monitor on telemetry - Goal blood pressure less than 160 before discharge home - Heart rate in the 50s, will hold on diltiazem AUGUSTO ruled out CKD-III ruled in: Kidney function abnormal initially on admission, appears to be his baseline. BUN stable at 14 with creatinine 1.4 on day of discharge. Electrolytes normal. Needs repeat labs at follow-up with PCP Hyperlipidemia: Atorvastatin 80 mg; LDL 74 Aortic iliac calcific plaque manage - risk factor modification for secondary prevention, recommend obtain EZE in near future, can be perfomed outpatient on follow up Nicotine patch as needed for tobacco Exam Data for Last 24 hours Vital signs and Labs for Last 24 Hours: Temp Pulse Resp BP Pulse Ox O2 Del Method O2 Flow Rate 97.9 F 55 L 16 151/88 H 99 Room Air 94 08/09/24 08:00 08/09/24 11:00 08/09/24 11:00 08/09/24 11:00 08/09/24 11:00 08/09/24 11:00 08/09/24 03:00 Laboratory Results - last 24 hr 08/08/24 17:45: WBC 9.1, RBC 5.53, Hgb 16.2, Hct 48.1, MCV 87.0, MCH 29.3, MCHC 33.7, RDW 12.5, Plt Count 262, MPV 10.0, Neut % (Auto) 51.4, Lymph % (Auto) 34.5, [place] % (Auto) 8.7, Eos % (Auto) 4.3, Baso % (Auto) 1.0, Neut # (Auto) 4.7, Lymph # (Auto) 3.2, [place] # (Auto) 0.8, Eos # (Auto) 0.4, Baso # (Auto) 0.1, APTT 33.0 L, D-Dimer 0.54 H, Sodium 138, Potassium 4.1, Chloride 103, Carbon Dioxide 29, Anion Gap 10.1, BUN 17, Creatinine 1.40 H, Estimated Creat Clear 70, Estimated GFR 52 L, Est GFR ( Amer) 62, Glucose 98, Calcium 9.9, Total Bilirubin 1.1, AST 58, ALT 33, Alkaline Phosphatase 73, Troponin I 1.97 H, NT-Pro-B Natriuret Pep 106, Total Protein 7.4, Albumin 4.7, Globulin 2.7, Albumin/Globulin Ratio 1.7, HCV Ab BARBI w/Rflx PCR Qn Reactive, HIV Ag/Ab Combo Qual Negative 08/08/24 18:35: Chlamy pneumoniae PCR Not detected, Adenovirus (PCR) Not d etected, B. pertussis DNA (PCR) Not detected, Coronavirus OC43 (PCR) Not detected, Coronavirus HKU1 (PCR) Not detected, Coronavirus 229E (PCR) Not detected, SARS-CoV-2 (PCR) Not detected, Coronavirus NL63 (PCR) Not detected, Human Metapneumovir PCR Not detected, Influenza A (H1) PCR Not detected, Influ A (H1N1/09) PCR Not detected, Influenza A (H3) PCR Not detected, Influenza Type A (PCR) Not detected, Influenza Type B (PCR) Not detected, M. pneumoniae (PCR) Not detected, Parainfluenza 1 (PCR) Not detected, Parainfluenza 2 (PCR) Not detected, Parainfluenza 3 (PCR) Not detected, Parainfluenza 4 (PCR) Not detected, RSV (PCR) Not detected, Entero/Rhino (PCR) Not detected 08/08/24 20:37: WBC 10.6, RBC 5.41, Hgb 15.7, Hct 46.4, MCV 85.8, MCH 29.0, MCHC 33.8, RDW 12.4, Plt Count 254, MPV 9.8, Neut % (Auto) 56.9, Lymph % (Auto) 30.7, [place] % (Auto) 6.6, Eos % (Auto) 4.5, Baso % (Auto) 1.0, Neut # (Auto) 6.0, Lymph # (Auto) 3.3, [place] # (Auto) 0.7, Eos # (Auto) 0.5 H, Baso # (Auto) 0.1, Sodium 134 L, Potassium 4.1, Chloride 106, Carbon Dioxide 22, Anion Gap 10.1, BUN 16, Creatinine 1.40 H, Estimated Creat Clear 70, Estimated GFR 52 L, Est GFR ( Amer) 62, Glucose 119 H D, Calcium 9.6, Troponin I 5.37 H 08/09/24 01:40: APTT 31.1 L 08/09/24 06:13: WBC 10.7, RBC 4.75, Hgb 14.1 D, Hct 40.9 L, MCV 86.1, MCH 29.7, MCHC 34.5, RDW 12.4, Plt Count 240, MPV 10.2, Neut % (Auto) 61.6, Lymph % (Auto) 23.7, [place] % (Auto) 9.3, Eos % (Auto) 4.2, Baso % (Auto) 0.8, Neut # (Auto) 6.6, Lymph # (Auto) 2.5, [place] # (Auto) 1.0, Eos # (Auto) 0.5 H, Baso # (Auto) 0.1, PT 11.1, INR 0.99, Sodium 136, Potassium 4.1, Chloride 106, Carbon Dioxide 27, Anion Gap 7.1, BUN 17, Creatinine 1.50 H, Estimated Creat Clear 64, Estimated GFR 48 L, Est GFR ( Amer) 58 L, Glucose 97, Calcium 9.0, Phosphorus 4.7 H , Magnesium 1.8, Total Bilirubin 0.9, AST 59, ALT 31, Alkaline Phosphatase 66, Troponin I 6.28 H, Total Protein 6.4, Albumin 4.0 D, Globulin 2.4, Albumin/Glob ulin Ratio 1.7, Triglycerides 279 H, Cholesterol 149, LDL Cholesterol Direct 74.43 L, VLDL Cholesterol 56 H, HDL Cholesterol 25 L, Cholesterol/HDL Ratio 6.0 H I & O for Last 24 hours: Intake & Output 08/06/24 08/07/24 08/08/24 08/09/24 23:59 23:59 23:59 23:59 Intake Total 1.55 / 445.55 687.05 / 687.05 Output Total 400 / 400 Balance 1.55 / 445.55 287.05 / 287.05 Weight 88.904 kg 87.572 kg Constitutional Constitutional: no acute distress, obese, chronically ill appearing and cooperative *Routine HEENT Exam Head: Present normocephalic Eye: Present EOMI and PERRL ENT: Present mucous membranes moist *Routine Neck Exam Neck: Present supple; Absent lymphadenopathy *Routine Respiratory Exam Respiratory: Present CTA bilaterally; Absent rhonchi, wheezes or crackles *Routine Cardiovascular Exam Cardiovascular: Present RRR *Routine Abdominal Exam Abdominal: Present soft and normoactive bowel sounds; Absent tenderness *Routine Rectal Exam Patient deferred: visual exam *Routine Exam Patient deferred: penile exam *Routine Extremities Exam Extremities: Absent cyanosis, clubbing or edema *Routine Skin Exam Skin: Present warm; Absent rash *Routine Neurological Exam Neurological: Present alert, oriented X3 and moving all extremities; Absent altered mental status Results Data Completed and Pending Labs on day of discharge: Labs from last 24 hours 08/09/24 08/09/24 08/08/24 06:13 01:40 20:37 WBC 10.7 10.6 RBC 4.75 5.41 Hgb 14.1 D 15.7 Hct 40.9 L 46.4 MCV 86.1 85.8 MCH 29.7 29.0 MCHC 34.5 33.8 RDW 12.4 12.4 Plt Count 240 254 MPV 10.2 9.8 Neut % (Auto) 61.6 56.9 Lymph % (Auto) 23.7 30.7 [place] % (Auto) 9.3 6.6 Eos % (Auto) 4.2 4.5 Baso % (Auto) 0.8 1.0 Neut # (Auto) 6.6 6.0 Lymph # (Auto) 2.5 3.3 [place] # (Auto) 1.0 0.7 Eos # (Auto) 0.5 H 0.5 H Baso # (Auto) 0.1 0.1 PT 11.1 INR 0.99 APTT 31.1 L D-Dimer Sodium 136 134 L Potassium 4.1 4.1 Chloride 106 106 Carbon Dioxide 27 22 Anion Gap 7.1 10.1 BUN 17 16 Creatinine 1.50 H 1.40 H Estimated Creat Clear 64 70 Estimated GFR 48 L 52 L Est GFR ( Amer) 58 L 62 Glucose 97 119 H D Calcium 9.0 9.6 Phosphorus 4.7 H Magnesium 1.8 Total Bilirubin 0.9 AST 59 ALT 31 Alkaline Phosphatase 66 Troponin I 6.28 H 5.37 H NT-Pro-B Natriuret Pep Total Protein 6.4 Albumin 4.0 D Globulin 2.4 Albumin/Globulin Ratio 1.7 Triglycerides 279 H Cholesterol 149 LDL Cholesterol Direct 74.43 L VLDL Cholesterol 56 H HDL Cholesterol 25 L Cholesterol/HDL Ratio 6.0 H Chlamy pneumoniae PCR Adenovirus (PCR) B. pertussis DNA (PCR) Coronavirus OC43 (PCR) Coronavirus HKU1 (PCR) Coronavirus 229E (PCR) SARS-CoV-2 (PCR) Coronavirus NL63 (PCR) HCV Ab BARBI w/Rflx PCR Qn HIV Ag/Ab Combo Qual Human Metapneumovir PCR Influenza A (H1) PCR Influ A (H1N1/) PCR Influenza A (H3) PCR Influenza Type A (PCR) Influenza Type B (PCR) M. pneumoniae (PCR) Parainfluenza 1 (PCR) Parainfluenza 2 (PCR) Parainfluenza 3 (PCR) Parainfluenza 4 (PCR) RSV (PCR) Entero/Rhino (PCR) 08/08/24 08/08/24 18:35 17:45 WBC 9.1 RBC 5.53 Hgb 16.2 Hct 48.1 MCV 87.0 MCH 29.3 MCHC 33.7 RDW 12.5 Plt Count 262 MPV 10.0 Neut % (Auto) 51.4 Lymph % (Auto) 34.5 [place] % (Auto) 8.7 Eos % (Auto) 4.3 Baso % (Auto) 1.0 Neut # (Auto) 4.7 Lymph # (Auto) 3.2 [place] # (Auto) 0.8 Eos # (Auto) 0.4 Baso # (Auto) 0.1 PT INR APTT 33.0 L D-Dimer 0.54 H Sodium 138 Potassium 4.1 Chloride 103 Carbon Dioxide 29 Anion Gap 10.1 BUN 17 Creatinine 1.40 H Estimated Creat Clear 70 Estimated GFR 52 L Est GFR ( Amer) 62 Glucose 98 Calcium 9.9 Phosphorus Magnesium Total Bilirubin 1.1 AST 58 ALT 33 Alkaline Phosphatase 73 Troponin I 1.97 H NT-Pro-B Natriuret Pep 106 Total Protein 7.4 Albumin 4.7 Globulin 2.7 Albumin/Globulin Ratio 1.7 Triglycerides Cholesterol LDL Cholesterol Direct VLDL Cholesterol HDL Cholesterol Cholesterol/HDL Ratio Chlamy pneumoniae PCR Not detected Adenovirus (PCR) Not detected B. pertussis DNA (PCR) Not detected Coronavirus OC43 (PCR) Not detected Coronavirus HKU1 (PCR) Not detected Coronavirus 229E (PCR) Not detected SARS-CoV-2 (PCR) Not detected Coronavirus NL63 (PCR) Not detected HCV Ab BARBI w/Rflx PCR Qn Reactive HIV Ag/Ab Combo Qual Negative Human Metapneumovir PCR Not detected Influenza A (H1) PCR Not detected Influ A (H1N1/09) PCR Not detected Influenza A (H3) PCR Not detected Influenza Type A (PCR) Not detected Influenza Type B (PCR) Not detected M. pneumoniae (PCR) Not detected Parainfluenza 1 (PCR) Not detected Parainfluenza 2 (PCR) Not detected Parainfluenza 3 (PCR) Not detected Parainfluenza 4 (PCR) Not detected RSV (PCR) Not detected Entero/Rhino (PCR) Not detected DS: Diagnosis Discharge Diagnosis (1) NSTEMI (non-ST elevated myocardial infarction): Status: Acute Code(s): I21.4 - Non-ST elevation (NSTEMI) myocardial infarction (2) Hypertensive emergency: Status: Acute Code(s): I16.1 - Hypertensive emergency (3) AUGUSTO (acute kidney injury): Status: Acute Code(s): N17.9 - Acute kidney failure, unspecified Meds Home Medications and Allergies Home Medications ?Medication ?Instructions ?Recorded ?Confirmed ?Type carvedilol 12.5 mg tablet 12.5 mg PO BID 01/17/24 08/08/24 History isosorbide mononitrate 30 mg 30 mg PO DAILY 01/17/24 08/08/24 History tablet,extended release 24 hr aspirin 81 mg tablet 81 mg PO DAILY 08/08/24 08/08/24 History atorvastatin 40 mg tablet 80 mg (2 x 40 mg) PO HS 30 days 08/10/24 Rx #60 tabs clopidogrel 75 mg tablet 75 mg PO DAILY 30 days #30 tabs 08/10/24 Rx hydralazine 50 mg tablet 50 mg PO TID PRN hypertension >180 08/10/24 08/08/24 Rx 30 days #0 tabs irbesartan 150 mg tablet 300 mg (2 x 150 mg) PO DAILY 30 08/10/24 Rx days #60 tabs nifedipine 60 mg tablet,extended 60 mg PO DAILY #30 tabs 08/11/24 Rx release 24 hr New Prescriptions to Start Prescriptions: atorvastatin Caden Sarmiento clopidogrel Caden Sarmiento irbesartan Caden Sarmiento nifedipine Caden Sarmiento Allergies Allergy/AdvReac Type Severity Reaction Status Date / Time No Known Allergies Allergy Verified 09/10/23 17:08 Discharge Plan Disposition Patient Disposition: Home, Self-Care Condition: Fair Follow up Plan Follow up with: Provider,ReferralMD [Primary Care Provider] - Enter time for follow up John Ac MD [Staff Physician] - 08/16/24 1:30 pm Prescriptions/Medication Reconciliation: New atorvastatin 40 mg Tablet 80 mg PO HS 30 Days Qty: 60 0RF clopidogrel 75 mg Tablet 75 mg PO DAILY 30 Days Qty: 30 0RF irbesartan 150 mg Tablet 300 mg PO DAILY 30 Days Qty: 60 0RF nifedipine 60 mg tablet extended release 24hr 60 mg PO DAILY Qty: 30 0RF Continued carvedilol 12.5 mg tablet 12.5 mg PO BID Patient Comments: TAKE 1 TABLET BY MOUTH TWICE A DAY isosorbide mononitrate 30 mg tablet extended release 24 hr 30 mg PO DAILY Patient Comments: TAKE 1 TABLET BY MOUTH EVERY DAY aspirin 81 mg Tablet 81 mg PO DAILY Changed hydralazine 50 mg tablet 50 mg PO TID PRN (Reason: hypertension >180) 30 Days Qty: 0 0RF Patient Comments: TAKE 1 TABLET BY MOUTH 3 TIMES A DAY Discontinued clonidine HCl 0.2 mg tablet 0.2 mg PO TID Patient Comments: TAKE 1 TABLET 3 TIMES A DAY BY ORAL ROUTE DIRECTED, FOR BLOOD PRESSURE. Problem Reconciliation Problems Reviewed?: Yes Patient Discharge Instructions ACTIVITY: Continue current activity DIET: continue same diet Patient Instructions: DI for Heart Attack, Tips to Help You Stop Smoking, Acute Kidney Injury, DI for Surgical Site Infection Print Language: Vietnamese Providers Primary Care Provider: Provider,Referral Admit Provider: Caden Sarmiento Attending Provider: Caden Sarmiento
--- NOTE | 2024-08-11 08:00 | CA_ITS ---
FINAL REPORT TECHNIQUE: Ultrasound images of the kidneys were obtained. Duplex Doppler of the renal arteries, RAR and RI also obtained. Spectral analysis was performed. CLINICAL HISTORY: HTN COMPARISON: None FINDINGS: Limited images of the liver parenchyma demonstrate normal echogenicity. The right kidney measures 10.7 cm in length. It is normal echogenicity. There is no hydronephrosis. RI is 0.56-0.68. The renal artery/aortic ratio: 1.4. The left kidney measures 10.7 cm in length. It is normal echogenicity. There is no hydronephrosis. RI is 0.64-0.70. The renal artery/aortic ratio: 1.5. IMPRESSION: Normal renal ultrasound. Normal RI bilaterally. Reviewed, Interpreted and Dictated by Yessenia Vee MD Transcribed by Remedios Gómez Authenticated and [facility]
[2024-08-11] MEDS: DOCUSATE SODIUM 100 MG CAPSULE PO (08:02)
[2024-08-11] MEDS: CLOPIDOGREL 75MG TAB 75 MG PO (08:02)
[2024-08-11] MEDS: CARVEDILOL 12.5MG TABLET 12.5 MG PO (08:02)
[2024-08-11] MEDS: ASPIRIN EC 81MG TABLET 81 MG PO (08:02)
[2024-08-11] MEDS: NIFEdipine XL 30MG TABLET 60 MG PO (08:03)
[2024-08-11] MEDS: IRBESARTAN 150MG TAB 300 MG PO (08:03)
[2024-08-11] MEDS: ISOSORBIDE MONO 30MG TAB.ER.24H 30 MG PO (08:04)
[2024-08-11 08:10] LABS: Magnesium 2.1 mg/dl (1.6-2.3)
[2024-08-13 22:42] LABS: Metanephrine Plasma 44.4 pg/mL (0.0-88.0); Normetanephrine Plasma 153.2 pg/mL (0.0-285.2)
--- NOTE | 2024-08-14 10:48 | SW/DCPLANNER ---
Spoke with patient on the phone. Patient stated that he has had a rough couple of days. Patient stated that he was able to get his new medicine picked up from clinic pharmacy. Patient stated that he has called and scheduled an appointment with his primary care provider. Patient stated that he has no concerns or questions at this time. Mell Sousa
[2024-08-14 16:51] LABS: Renin Activity, Plasma 0.346 ng/mL/hr (0.167-5.380)
== END 2024-08-11 09:34 | disposition home or self-care (01) ==
LOC: ER 19:22 → 2ND 19:40
PROVIDERS: Internal Medicine; Physician Assistant; Student in an Organized Health Care Education/Training Program; Admitting Provider Internal Medicine Adolescent Medicine; Emergency Provider Emergency Medicine; Visit Provider Internal Medicine Adolescent Medicine
PROC: 4A023N7 Measurement of Cardiac Sampling and Pressure, Left Heart, Percutaneous Approach (ICD-10-PCS; CPT 93452; principal; 2024-08-08 20:30)
DX: I21.4 Non-ST elevation (NSTEMI) myocardial infarction (principal); I24.9 Acute ischemic heart disease, unspecified; I16.1 Hypertensive emergency; N17.9 Acute kidney failure, unspecified; E78.5 Hyperlipidemia, unspecified; Z87.891 Personal history of nicotine dependence; Z79.899 Other long term (current) drug therapy; I12.9 Hypertensive chronic kidney disease with stage 1 through stage 4 chronic kidney disease, or unspecified chronic kidney disease; N18.30 Chronic kidney disease, stage 3 unspecified; I70.1 Atherosclerosis of renal artery
CPT/HCPCS: 36252; 36415; 71045; 76770; 80048; 80053; 80061; 82088; 82384; 82962; 83735; 83835; 83880; 84100; 84244; 84439; 84443; 84484; 85025; 85378; 85610; 85730; 86803; 87081; 87389; 87522; 87633; 93005; 93306; 93458; 93976; 99152; 99153; 99291; C1725; C1769; G0378; J0360; J1644; J2250; J2270; J3010; Q9967

== ENCOUNTER 2025-02-06 12:12 | Emergency (ER) | payer MEDICAID, SELFPAY ==
[2025-02-06 12:15] VITALS: BP 190/96; PULSE 68; RESP 18; TEMP 36.7; O2SAT 100; BMI 31.3
[2025-02-06 12:30] VITALS: BP 150/91
--- NOTE | 2025-02-06 12:30 | XR_ITS ---
FINAL REPORT CLINICAL HISTORY: [facility] pain and swelling COMPARISON: None FINDINGS: Three views of the right hand show no evidence of acute displaced fracture or dislocation of the visualized bony architecture. The joint spaces appear normal. IMPRESSION: Unremarkable exam. Reviewed, Interpreted and Dictated by Riddhi Mathias MD Transcribed by Madhuri Kingsley Authenticated and [facility]
--- NOTE | 2025-02-06 12:32 | HMH.EDGENADL ---
Discharge Plan Disposition Patient Disposition: Home, Self-Care Prescriptions Prescriptions: New prednisone 50 mg tablet 50 mg PO DAILY 5 Days Qty: 5 0RF ibuprofen 800 mg tablet 800 mg PO Q8H PRN (Reason: pain) Qty: 15 0RF Rx Instructions: Take with a little bit of food. No Action carvedilol 12.5 mg tablet 12.5 mg PO BID Patient Comments: TAKE 1 TABLET BY MOUTH TWICE A DAY isosorbide mononitrate 30 mg tablet extended release 24 hr 30 mg PO DAILY Patient Comments: TAKE 1 TABLET BY MOUTH EVERY DAY aspirin 81 mg Tablet 81 mg PO DAILY atorvastatin 40 mg Tablet 80 mg PO HS 30 Days Qty: 60 0RF clopidogrel 75 mg Tablet 75 mg PO DAILY 30 Days Qty: 30 0RF irbesartan 150 mg Tablet 300 mg PO DAILY 30 Days Qty: 60 0RF hydralazine 50 mg tablet 50 mg PO TID PRN (Reason: hypertension >180) 30 Days Qty: 0 0RF Patient Comments: TAKE 1 TABLET BY MOUTH 3 TIMES A DAY nifedipine 60 mg tablet extended release 24hr 60 mg PO DAILY Qty: 30 0RF Referrals Follow up/Referrals: Per Tucker DO [Staff Physician, Orthopedics] - See instructions Provider,Referral, [Referring, Medical] - See instructions Activity Restrictions/Add. Instructions Additional Instructions/Restrictions: At this time it was felt you are safe to be discharged home. If new or worsening symptoms please do not hesitate to return the emergency department. Please take your medications as prescribed and call and schedule appoint with Dr. Tucker as soon as you are able for continued evaluation later this week or early next week. Clinical Impressions Clinical Impression: Acute wrist pain Print Language Print Language: [place] Discharge ED Provider: Peter Jefferson General Adult HPI General Chief complaint: PAIN Stated complaint: right hand swollen, pain Time Seen by Provider: 02/06/25 12:22 Mode of Arrival: Ambulatory Source of Information: Patient and Spouse Description of Symptoms (Recalled from ER Triage Doc. by RN): patient presents for right hand swelling that he noticed yesterday. he rates it a 9/10, hasnt taken any medications. its causing sleepless nights, he cant put pressure on it. History of Present Illness HPI narrative: Patient is a 59-year-old male with past medical history of gout, hypertension who presents emergency department for evaluation of right wrist pain. Patient is right-handed. Over the last 24 hours he has had pain, warmth, swelling over his right radial wrist. Denies trauma. His last gout flare was over a decade ago he is not on any controlled medications. Pain is severe in intensity, limited range of motion. No fevers or proximal upper extremity pain. No other acute complaints at this time. Please note that above description of symptoms, in this electronic medical record under categorization of recalled from ER triage doctor by RN are reflective of an initial nursing assessment, however, is not reflective of my full history and physical exam that was personally taken and clarified. Consequentially, this preceding description of symptoms, which may include the patient's categorized chief complaint in the EMR, do not reflect my personal clinical impression, and the ultimate description of history of present illness and patient stated complaints should be deferred to this section of the note. Unless stated otherwise or congruent with this section of the note, additional signs, symptoms, or incongruence should be interpreted as inaccurate with my clinical impression. Related Data Home Medications ?Medication ?Instructions ?Recorded ?Confirmed carvedilol 12.5 mg tablet 12.5 mg PO BID 01/17/24 08/08/24 isosorbide mononitrate 30 mg 30 mg PO DAILY 01/17/24 08/08/24 tablet,extended release 24 hr aspirin 81 mg tablet 81 mg PO DAILY 08/08/24 08/08/24 Previous Rx's ?Medication ?Instructions ?Recorded atorvastatin 40 mg tablet 80 mg (2 x 40 mg) PO HS 30 days 08/10/24 #60 tabs clopidogrel 75 mg tablet 75 mg PO DAILY 30 days #30 tabs 08/10/24 hydralazine 50 mg tablet 50 mg PO TID PRN hypertension >180 08/10/24 30 days #0 tabs irbesartan 150 mg tablet 300 mg (2 x 150 mg) PO DAILY 30 08/10/24 days #60 tabs nifedipine 60 mg tablet,extended 60 mg PO DAILY #30 tabs 08/11/24 release 24 hr ibuprofen 800 mg tablet 800 mg PO Q8H PRN pain #15 tabs 02/06/25 prednisone 50 mg tablet 50 mg PO DAILY 5 days #5 tabs 02/06/25 Allergies Allergy/AdvReac Type Severity Reaction Status Date / Time No Known Allergies Allergy Verified 09/10/23 17:08 [facility] Disclaimer: The information contained in this section may have been updated after the patient was seen, as this information can be updated by other users. Medical History (Updated 02/06/25 @ 13:57 by Peter Jefferson MD) Rheumatoid arthritis flare Social History Smoking Status: Never smoker second hand exposure: No alcohol intake: never current occupational status: unemployed Travel in the last 8 weeks?: None caffeine: Yes Have you lived/traveled outside [place] in past 30 days?: No Contact w/someone who lives/traveled outside [place] past 30 days?: No Exposure to someone with infectious disease in past 14 days?: No Do you have a fever (greater than 100.4 F or 38 C)?: No Have you tested positive for COVID-19?: No Exposed to someone with COVID-19 in past 14 days?: No Do you have a sore throat?: No Do you have a cough?: No Do you have any weakness?: No Do you have any diarrhea?: No Are you experiencing any unusual bleeding?: No Do you have any muscle aches/pain?: No Do you have any abdominal pain?: No Are you experiencing loss of taste or smell?: No Other Medical History Have you received the Flu Vaccine for this season: No Have you received the Pneumonia Vaccine: No ROS Obtained: Yes Systems reviewed as appropriate & no additional complaints except as documented Physical Exam General General appearance: alert and in no apparent distress Head Head exam: atraumatic and normocephalic Eye Eye exam: Present PERRL and EOMI ENT ENT exam: Present mucous membranes moist Neck Neck exam: Present normal inspection Chest Chest inspection: Present normal inspection and symmetric chest wall rise Respiratory Respiratory exam: Absent respiratory distress Cardiovascular Cardiovascular exam: Present regular rate and normal rhythm Extremities Exam Extremities exam: Present normal capillary refill (Palpable right radial pulse) and other (Significant tenderness over the carpometacarpal joint and radial wrist joint on the right, swelling of the thenar eminence. Able to range the PIP and DIP of the thumb on the right, distally neurovascular intact digits of the right hand. No proximal forearm tenderness on the right. ) Neurological Exam Neurological exam: Present alert Psychiatric Psychiatric exam: Present normal affect Skin Skin exam: Present warm and dry Medical Decision Making Medical Records Screening: Per USPSTF and CDC recommendations, given the prevalence of disease in our region, it is our hospital?s policy to screen for HIV and viral Hepatitis for all patients aged 18 and over and those with ongoing risk factors. [place] Inquiry Pt receiving controlled substance: No Vital Signs: 02/06/25 12:15 02/06/25 12:30 Temperature 98.0 F Temperature Source Oral Pulse Rate [Right Radial] 68 Respiratory Rate 18 Blood Pressure 150/91 H Blood Pressure [Right Arm] 190/96 H Blood Pressure Mean 114 Blood Pressure Mean [Right Arm] 127 Blood Pressure Source [Right Arm] Automatic Cuff Blood Pressure Position [Right Arm] Sitting 02 Sat by Pulse Oximetry 100 Oxygen Delivery Method Room Air Lab Data Lab Results 02/06/25 12:45: WBC 10.7, RBC 5.51, Hgb 16.3, Hct 46.1, MCV 83.7, MCH 29.6, MCHC 35.4, RDW 12.3, Plt Count 308, MPV 9.5, Neut % (Auto) 62.6, Lymph % (Auto) 25.4, [place] % (Auto) 8.7, Eos % (Auto) 2.5, Baso % (Auto) 0.7, Neut # (Auto) 6.7, Lymph # (Auto) 2.7, [place] # (Auto) 0.9, Eos # (Auto) 0.3, Baso # (Auto) 0.1, ESR 21 H, Sodium 136, Potassium 3.5, Chloride 98, Carbon Dioxide 29, Anion Gap 12.5, BUN 10, Creatinine 1.40 H, Estimated Creat Clear 71, Estimated GFR 52 L, Est GFR ( Amer) 62, Glucose 181 H, Uric Acid 8.4, Calcium 10.1, Total Bilirubin 1.3, AST 31, ALT 20, Alkaline Phosphatase 86, C-Reactive Protein 6.9 H, Total Protein 8.7 H, Albumin 4.9, Globulin 3.8 H, Albumin/Globulin Ratio 1.3 02/06/25 12:45 02/06/25 12:45 Orders (Tests/Meds): ED MEDICATIONS Discontinued Medications Generic Name Dose Route Start Last Admin Trade Name Freq PRN Reason Stop Dose Admin Acetaminophen 1,000 mg 02/06/25 12:30 02/06/25 12:46 Acetaminophen 500mg Tab PO 02/06/25 12:31 1,000 mg ONCE ONE Administration Ketorolac Tromethamine 30 mg 02/06/25 12:30 02/06/25 12:45 Ketorolac 30mg/Ml Vial IV 02/06/25 12:31 30 mg ONCE ONE Administration Methylprednisolone Sodium Succinate 125 mg 02/06/25 13:18 02/06/25 13:25 Methylprednisolone Sod Succ 125mg Vial IV 02/06/25 13:19 125 mg ONCE ONE Administration Ondansetron HCl 4 mg 02/06/25 12:30 02/06/25 12:45 Ondansetron 4mg/2ml Vial IV 02/06/25 12:31 4 mg ONCE ONE Administration Oxycodone HCl 5 mg 02/06/25 12:31 02/06/25 12:46 Oxycodone 5mg Immediate Release Tablet PO 02/06/25 12:32 5 mg ONCE ONE Administration ORDERS Category Date Time Status Hand XR right minimum 3 views [XR hand RT min 3V] Stat Exams 02/06/25 12:30 Completed CBC w/Auto Diff [Complete Blood Count Auto Diff] Stat Lab 02/06/25 12:45 Completed CMP [Comprehensive Metabolic Panel] Stat Lab 02/06/25 12:45 Completed CRP [C-Reactive Protein] Stat Lab 02/06/25 12:45 Completed ESR [Erythrocyte Sedimentation Rate] Stat Lab 02/06/25 12:45 Completed Uric Acid Stat Lab 02/06/25 12:45 Completed Medical Decision Narrative: In summary patient is a 59-year-old male with past medical history of scrota above who presents emergency department for evaluation of atraumatic right wrist pain. Patient is hemodynamically stable nontoxic-appearing upon arrival, afebrile. Patient does have a history of gout with his acute swelling and warmth of his carpometacarpal joint and wrist joint. This could be a gout flare although it is atypical from patient's baseline he is not on controlled medications. Differential also includes septic arthritis, other causes of inflammatory monoarticular arthritis, among others. Workup will be conducted initially with hematologic labs and plain film of the right wrist. Initial inventions include multimodal pain control. Patient does not appear systemically ill or septic therefore cultures and sepsis bolus fluids as well as empiric antibiotics were considered but will be deferred initially. Initial workup reviewed by me no significant leukocytosis no transfusable anemia no [place] or critical electrolyte abnormality, stable CKD, minimally elevated CRP. X-ray informally interpreted by me no acute significantly displaced fracture. Formal read unremarkable. Case was discussed with Dr. Tucker regarding management he evaluated the patient, we both agree this is exceptionally unlikely to be septic arthritis and arthrocentesis will be deferred at this point. Upon further introspection patient thinks he may have pulled his thumb while playing with his dog roughhousing yesterday. In totality we will treat empirically for noninfectious arthritis flare with methylprednisolone and I will discharge with a course of burst of steroids and he will follow-up with orthopedics on an outpatient basis. Critical Care Critical Care Time Critical Care Time: No
--- OUTSIDE RECORDS SUMMARY | 2025-02-06 12:33 | XMS_ITS | Clinical Summary ---
Author Organization [facility] Address [address] [place] [address] Phone Care Team Providers Care Loss Prevention Leader Name Role Phone Ede Andrade MD Unavailable [ ] Conditions or Problems No information available. Medications No information available. Medications Administered No information available. Allergies, Adverse Reactions, Alerts No information available. Results No information available. Plan of Care No information available. Procedures No information available. Vital Signs No information available. Immunizations No information available. Advance Directives No information available.
[2025-02-06] MEDS: KETOROLAC 30MG/ML VIAL 30 MG IV (12:45)
[2025-02-06] MEDS: ONDANSETRON 4MG/2ML VIAL 4 MG IV (12:45)
--- NOTE | 2025-02-06 12:45 | PC.NURSE ---
bedside speaking with the pt.
[2025-02-06] MEDS: ACETAMINOPHEN 500MG TAB 1000 MG PO (12:46)
[2025-02-06] MEDS: OXYCODONE 5MG IMMEDIATE RELEASE TABLET 5 MG PO (12:46)
[2025-02-06 12:52] LABS: Hematocrit 46.1 % (42.0-52.0); Hemoglobin 16.3 g/dL (14.1-18.0); Immature Granulocytes % 0.1 %; Mean Corpuscular HGB Conc 35.4 g/dL (31.8-35.4); Mean Corpuscular Hemoglobin 29.6 pg (27.0-31.2); Mean Corpuscular Volume 83.7 fl (80-94); Nucleated Red Blood Cells % 0 %; Platelet Count 308 K/mm3 (142-424); Red Blood Count 5.51 M/mm3 (4.60-6.20); Red Cell Distribution Width-SD 37.4 fL; White Blood Count 10.7 K/mm3 (4.8-10.8)
[2025-02-06 13:07] LABS: Alanine Aminotransferase 20 U/L (12-78); Albumin Level 4.9 g/dl (3.5-5.0); Albumin/Globulin Ratio 1.3 (1.1-1.8); Alkaline Phosphatase 86 U/L (38-126); Anion Gap 12.5 mEq/L (5-15); Aspartate Amino Transferase 31 U/L (17-59); Bilirubin,Total 1.3 mg/dl (0.2-1.3); Blood Urea Nitrogen 10 mg/dl (9-20); Calcium 10.1 mg/dl (8.4-10.2); Carbon Dioxide 29 mmol/L (22.0-30.0); Chloride 98 mmol/L (98-107); Creatinine Clearance Estimated 71 mL/min (50-200); Creatinine,Serum 1.40 mg/dl (0.66-1.25); Estimated Glomerular Filt Rate 52 ml/min (>60); GFR (African American) 62 ML/MIN (>60); Globulin 3.8 g/dL (1.3-3.2); Glucose 181 mg/dl (74-100); Potassium 3.5 mmoL/L (3.5-5.1); Sodium 136 mmol/L (136-145); Total Protein,Serum 8.7 g/dl (6.3-8.2); Uric Acid 8.4 mg/dl (3.5-8.5)
[2025-02-06 13:12] LABS: C-Reactive Protein 6.9 mg/L (0-4)
[2025-02-06] MEDS: METHYLPREDNISOLONE SOD SUCC 125MG VIAL 125 MG IV (13:25)
[2025-02-06 14:24] VITALS: BP 145/84; PULSE 86; RESP 16; TEMP 36.9; O2SAT 99
== END 2025-02-06 14:25 | disposition home or self-care (01) ==
PROVIDERS: Emergency Provider Emergency Medicine; PCP Nurse Practitioner Adult Health
DX: M25.531 Pain in right wrist (principal)
CPT/HCPCS: 73130; 80053; 84550; 85025; 85651; 86140; 99283; J1885; J2405; J2919